=== PATIENT | male | born 1955 | race Caucasian/White ===

== ENCOUNTER 2020-08-02 06:37 | Outpatient (REF) | payer BC, SELFPAY ==
[2020-08-02 07:20] LABS: Estimated Average Glucose 128 mg/dL; Hemoglobin A1c % 6.1 %
[2020-08-02 08:27] LABS: Creatinine Urine 129.08 mg/dL; Microalbum/Creatinine Ratio Ur 12.3 ug/mg cr
== END 2020-08-02 06:38 | disposition home or self-care (01) ==
LOC: HO.LAB 06:37
PROVIDERS: PCP Physician Assistant; Visit Provider Nurse Practitioner Gerontology
DX: E11.42 Type 2 diabetes mellitus with diabetic polyneuropathy (principal)
CPT/HCPCS: 82043; 83036

== ENCOUNTER → 2020-08-04 07:53 | Outpatient (BNVA) | payer BC, SELFPAY | PROVIDERS: PCP Physician Assistant; Referring Provider Physician Assistant; Visit Provider Nurse Practitioner Gerontology | DX: E11.42 Type 2 diabetes mellitus with diabetic polyneuropathy (principal); Z79.4 Long term (current) use of insulin; I10 Essential (primary) hypertension; E78.5 Hyperlipidemia, unspecified; E66.09 Other obesity due to excess calories; Z68.31 Body mass index [BMI] 31.0-31.9, adult | CPT/HCPCS: 82947 ==

== ENCOUNTER 2020-08-04 08:43 | Outpatient (REF) | payer BC, SELFPAY ==
[2020-08-04 11:17] LABS: Alanine Aminotransferase 24 U/L (0-40); Albumin Level 4.3 g/dL (3.5-5.0); Alkaline Phosphatase 51 U/L (39-117); Anion Gap 13 (12-20); Aspartate Amino Transferase 23 U/L (5-37); Bilirubin Total 0.2 mg/dL (0.0-1.0); Blood Urea Nitrogen 24 mg/dL (9-16); Calcium 9.2 mg/dL (8.4-10.2); Carbon Dioxide 29 mmol/L (22-29); Chloride 101 mmol/L (96-108); Estimated Glomerular Filt Rate 57; Glucose Fasting 108 mg/dL (60-99); Sodium 138 mmol/L (135-145); Total Protein 7.1 g/dL (6.5-8.0)
== END 2020-08-04 08:44 | disposition home or self-care (01) ==
LOC: HO.10HDL 08:43
PROVIDERS: Visit Provider Nurse Practitioner Gerontology
DX: E11.42 Type 2 diabetes mellitus with diabetic polyneuropathy (principal)
CPT/HCPCS: 80053; 84134

== ENCOUNTER 2020-08-16 07:35 | Outpatient (REF) | payer BC, SELFPAY | END 2020-08-16 07:36 | disposition home or self-care (01) | LOC: HO.LAB 07:35 | PROVIDERS: Visit Provider Internal Medicine | DX: Z20.828 Contact with and (suspected) exposure to other viral communicable diseases (principal) | CPT/HCPCS: C9803; U0003 ==

== ENCOUNTER → 2021-02-01 07:24 | Outpatient (BNVA) | payer BC, SELFPAY | PROVIDERS: PCP Physician Assistant; Visit Provider Nurse Practitioner Gerontology | DX: E11.42 Type 2 diabetes mellitus with diabetic polyneuropathy (principal); E78.5 Hyperlipidemia, unspecified; I10 Essential (primary) hypertension; E66.09 Other obesity due to excess calories; Z68.31 Body mass index [BMI] 31.0-31.9, adult | CPT/HCPCS: 82947 ==

== ENCOUNTER → 2021-08-09 07:26 | Outpatient (BNVA) | payer BC, SELFPAY | PROVIDERS: PCP Internal Medicine; Visit Provider Nurse Practitioner Gerontology | DX: E11.42 Type 2 diabetes mellitus with diabetic polyneuropathy (principal); E78.5 Hyperlipidemia, unspecified; E66.09 Other obesity due to excess calories; I10 Essential (primary) hypertension; Z68.31 Body mass index [BMI] 31.0-31.9, adult | CPT/HCPCS: 82947 ==

== ENCOUNTER → 2021-11-15 07:48 | Outpatient (BNVA) | payer BC, SELFPAY | PROVIDERS: PCP Internal Medicine; Visit Provider Registered Nurse Diabetes Educator ==

== ENCOUNTER 2021-11-18 10:08 | Outpatient (REF) | payer BC, SELFPAY ==
--- NOTE | ~2021-11-18 | XR_ITS ---
EXAMINATION: XR SHOULDER, LEFT CLINICAL INFORMATION: Limited range of motion. Pain. COMPARISON: None TECHNIQUE: AP external rotation, Grashey, scapular Y, and axillary views of the left shoulder. FINDINGS: There is loss of left AC joint and glenohumeral joint space with left AC joint periarticular spurring. No visible fracture, dislocation or subluxation seen. There are no loose bodies. No abnormal joint effusion. The soft tissues are unremarkable. XR/XR shoulder LT min 2V IMPRESSION: Unremarkable left shoulder exam.
== END 2021-11-18 10:09 | disposition home or self-care (01) ==
LOC: HO.HMGCX 10:08
PROVIDERS: Visit Provider Internal Medicine
DX: M25.512 Pain in left shoulder (principal)
CPT/HCPCS: 73030

== ENCOUNTER 2021-11-22 07:49 | Outpatient (REF) | payer BC, SELFPAY | END 2021-11-22 07:50 | disposition home or self-care (01) | LOC: HO.HOSX 07:49 | PROVIDERS: Visit Provider Physician Assistant | DX: M75.102 Unspecified rotator cuff tear or rupture of left shoulder, not specified as traumatic (principal) | CPT/HCPCS: 20610; 99212; J1020 ==

== ENCOUNTER 2021-11-28 06:33 | Outpatient (REF) | payer BC, SELFPAY ==
[2021-11-28 07:52] LABS: Alanine Aminotransferase 17 U/L (0-40); Albumin Level 4.4 g/dL (3.5-5.0); Alkaline Phosphatase 55 U/L (39-117); Anion Gap 14 (12-20); Aspartate Amino Transferase 18 U/L (5-37); Bilirubin Total 0.4 mg/dL (0.0-1.0); Blood Urea Nitrogen 32 mg/dL (9-16); Calcium 9.9 mg/dL (8.4-10.2); Carbon Dioxide 28 mmol/L (22-29); Chloride 102 mmol/L (96-108); Cholesterol 143 mg/dL; Estimated Glomerular Filt Rate > 60; Glucose Fasting 102 mg/dL (60-99); HDL Cholesterol 34 mg/dL; LDL Cholesterol Calculated 88 mg/dl; Potassium 4.7 mmol/L (3.3-5.1); Sodium 139 mmol/L (135-145); Total Protein 7.3 g/dL (6.5-8.0); Triglycerides 106 mg/dL
[2021-11-28 10:13] LABS: Creatinine Urine 108.32 mg/dL; Microalbum/Creatinine Ratio Ur 13.8 ug/mg cr
== END 2021-11-28 06:34 | disposition home or self-care (01) ==
LOC: HO.LAB 06:33
PROVIDERS: PCP Internal Medicine; Visit Provider Nurse Practitioner Gerontology
DX: E11.42 Type 2 diabetes mellitus with diabetic polyneuropathy (principal)
CPT/HCPCS: 36415; 80053; 80061; 82043

== ENCOUNTER → 2021-11-29 07:26 | Outpatient (BNVA) | payer BC, SELFPAY | PROVIDERS: PCP Internal Medicine; Visit Provider Nurse Practitioner Gerontology | DX: E11.42 Type 2 diabetes mellitus with diabetic polyneuropathy (principal); E78.5 Hyperlipidemia, unspecified; E66.09 Other obesity due to excess calories; I10 Essential (primary) hypertension; Z68.31 Body mass index [BMI] 31.0-31.9, adult | CPT/HCPCS: 82947 ==

== ENCOUNTER 2022-09-12 12:57 | Outpatient (REF) | payer BC, SELFPAY ==
--- NOTE | ~2022-09-12 | XR_ITS ---
EXAMINATION: XR KNEE, LEFT CLINICAL INFORMATION: Pain and swelling COMPARISON: None TECHNIQUE: Four views of the left knee. FINDINGS: Bone alignment is normal. No fracture or dislocation. The joint spaces are normal. There is no joint effusion. There is atherosclerotic disease. XR/XR knee LT 4V IMPRESSION: Normal left knee. Atherosclerotic disease.
== END 2022-09-12 12:58 | disposition home or self-care (01) ==
LOC: HO.HMGCX 12:57
PROVIDERS: PCP Internal Medicine; Visit Provider Internal Medicine
DX: M25.562 Pain in left knee (principal); R60.0 Localized edema
CPT/HCPCS: 73564

== ENCOUNTER 2022-11-01 05:50 | Outpatient (REF) | payer BC, SELFPAY ==
--- NOTE | ~2022-11-01 | XR_ITS ---
EXAMINATION: XR KNEE AP STANDING X-ray left knee CLINICAL INFORMATION: Pain COMPARISON: Left knee 09/12/2022 TECHNIQUE: AP bilateral standing view of the knees was obtained. Left knee one skyline view FINDINGS: Left knee: Borderline medial compartment joint space narrowing. Marginal patellar spurs. Normal bony alignment. On the provided 2 views, no acute fracture is seen. Vascular calcification. Right knee: Anatomic alignment on the frontal radiograph. Joint spaces are relatively maintained. Vascular calcification.. XR/XR knee LT 1V IMPRESSION: Left knee: Mild arthritis as above. No acute findings seen on the provided views.
--- NOTE | ~2022-11-01 | XR_ITS ---
EXAMINATION: XR KNEE AP STANDING X-ray left knee CLINICAL INFORMATION: Pain COMPARISON: Left knee 09/12/2022 TECHNIQUE: AP bilateral standing view of the knees was obtained. Left knee one skyline view FINDINGS: Left knee: Borderline medial compartment joint space narrowing. Marginal patellar spurs. Normal bony alignment. On the provided 2 views, no acute fracture is seen. Vascular calcification. Right knee: Anatomic alignment on the frontal radiograph. Joint spaces are relatively maintained. Vascular calcification.. XR/XR knee standing BI IMPRESSION: Left knee: Mild arthritis as above. No acute findings seen on the provided views.
== END 2022-11-01 05:51 | disposition home or self-care (01) ==
LOC: HO.HOSX 05:50
PROVIDERS: Visit Provider Physician Assistant
DX: M17.12 Unilateral primary osteoarthritis, left knee (principal); M25.561 Pain in right knee; E11.9 Type 2 diabetes mellitus without complications; Z79.899 Other long term (current) drug therapy; Z79.4 Long term (current) use of insulin; Z79.84 Long term (current) use of oral hypoglycemic drugs
CPT/HCPCS: 20610; 73560; 73565; J1020

== ENCOUNTER 2022-12-04 12:00 | Outpatient (RCR) | payer BC, SELFPAY ==
--- NOTE | 2022-11-22 13:42 | MHC.PT.EP ---
[facility] [place] [facility] [place] Office [place] Office [address] Liz Meza [address] [phone] F: [phone] F: [phone] F: [phone] F: [phone] Physical Therapy Plan of Care Date of Evaluation: Date of Surgery: N/A Diagnosis: unilateral primary osteoarthritis, left knee Assessment: Pt is a pleasant 67yo M with presents to PT with L knee pain since August. He presents to PT with current impairments in pain, decreased L knee ROM, decreased L knee knee strength, decreased hip/glute strength, decreased muscle length, and impaired gait. He is limited functionally by prolonged standing, prolonged walking, stair navigation, and biking. He is an excellent candidate for skilled PT in order to address current impairments in order to facilitate return to pain-free PLOF. He is recommended to be seen 2x/week for 4 weeks and will be reassessed at that time. Frequency and Duration: The patient will be seen 2x/week for 4 weeks Short Term Goals: Pt will be I with HEP to promote self management of symptoms Pt will improve L knee extension by 5 deg Pt will improve L quad strength to 4+/5 Patient Safety Officer Goals: Pt will ascend/descend 1 flight of stairs with proper mechanics and minimal to no discomfort Pt will tolerate walking on even and uneven surfaces > 2 miles with minimal to no discomfort Pt will demonstrate improvements in function as evidenced by statistically significant improvement in LEFI outcome measure Treatment Plan: Modalities to reduce pain, spasms and effusion. Manual therapy to restore motion and function. Therapeutic exercise to improve strength and flexibility. Neuromuscular re-education for posture and balance. Therapeutic activities to return to functional activities of daily living. Electronically signed by: Marina Padgett, PT, DPT Please sign and return to therapist. Thank you for your referral.
--- NOTE | 2023-01-17 10:22 | MHC.PT.DC ---
[facility] [place] [facility] [place] Office [place] Office [address] Liz Meza [address] [phone] F: [phone] F: [phone] F: [phone] F: [phone] Physical Therapy Discharge Report Diagnosis: unilateral primary osteoarthritis, left knee Date of Surgery: N/A Date of Evaluation: 11/22/22 Date of Discharge: 01/17/23 Treatments to Date: 2 Cancellations to Date: 4 No Shows to Date: Discharge Status: Visit Non-compliance Discharge Summary: Pt was seen for PT from 11/22/22-12/04/22. He attended initial PT evaluation and 1 PT treatment session. He had 4 cancellations since SOC. He is being D/C from skilled PT as he has not attended or called to reschedule in > 30 days. Pt current level of function unknown at this time. Electronically signed by: Marina Padgett, PT, DPT Please sign and return to therapist. Thank you for your referral.
== END 2023-01-17 10:27 | disposition home or self-care (01) ==
LOC: HO.PT 12:00
PROVIDERS: PCP Internal Medicine; Visit Provider Physician Assistant
DX: M17.12 Unilateral primary osteoarthritis, left knee (principal)
CPT/HCPCS: 97110; 97161

== ENCOUNTER → 2023-01-30 10:01 | Outpatient (BNVA) | payer OTHER, SELFPAY | PROVIDERS: PCP Internal Medicine; Visit Provider Physician Assistant ==

== ENCOUNTER → 2023-02-11 08:22 | Outpatient (BNVA) | payer OTHER, SELFPAY | PROVIDERS: PCP Internal Medicine; Visit Provider Orthopaedic Surgery ==

== ENCOUNTER 2023-03-27 12:43 | Outpatient (REF) | payer OTHER, SELFPAY ==
--- NOTE | ~2023-03-27 | MR_ITS ---
EXAMINATION: MR KNEE WITHOUT CONTRAST, LEFT CLINICAL INFORMATION: Left knee pain and swelling. Internal derangement. COMPARISON: Most recent left knee radiographs dated 11/01/2022. TECHNIQUE: MRI of the knee without contrast was performed using routine sequences on a high-field scanner. FINDINGS: MENISCI: Medial Meniscus: Complete radial tear of the posterior horn/root junction measuring up to 0.9 cm in ML dimension and located approximately 0.5 cm from the posterior root insertion. Oblique inner margin/tibial articular surface tearing extending through the posterior horn and body which is medially extruded. Mild adjacent soft tissue edema. Lateral Meniscus: Minimal inner margin fraying of the posterior horn. LIGAMENTS: Cruciate: Complete, full-thickness tear of the anterior cruciate ligament with thickening and increased signal of the torn ligament fibers. Findings have the appearance of a subacute tear. Prominent degenerative signal throughout the posterior cruciate ligament. Collateral: Mild edema adjacent to the medial collateral ligament which may be related to the meniscal tear or indicate a grade 1 sprain/partial tear. Intact fibular collateral ligament. EXTENSOR MECHANISM: Intact. ARTICULAR CARTILAGE/BONE: Patellofemoral Compartment: Medial patellar articular cartilage signal heterogeneity and surface irregularity. Medial trochlear articular cartilage thinning with areas of full-thickness loss and signal heterogeneity. Inferior central trochlea articular cartilage thinning and signal heterogeneity. Small marginal osteophytes. Medial Compartment: Osteochondral lesion at the weightbearing medial femoral condyle measuring 2.4 x 2.0 cm (AP x ML). There is full-thickness articular cartilage fissuring along the periphery of the lesion with underlying fluid signal, cystic change, and prominent adjacent marrow edema. Findings are consistent with an unstable osteochondral fragment. Lateral Compartment: Intact articular cartilage. JOINT FLUID AND BURSAE: Small to moderate joint effusion with mild synovitis. MR/MR knee LT wo con IMPRESSION: 1. Complete radial tear of the medial meniscus posterior horn/root junction measuring 0.9 cm in ML dimension and located approximately 0.5 cm from the posterior root insertion. Oblique inner margin/tibial articular surface tearing extending through the posterior horn and body which is medially extruded. 2. Minimal intermargin fraying of the lateral meniscus posterior horn. 3. Subacute, complete tear of the anterior cruciate ligament. Prominent degenerative signal throughout the posterior cruciate ligament. Mild edema adjacent to the medial collateral ligament which may be related to the meniscal tear or indicate a grade 1 sprain/partial tear. 4. Osteochondral lesion at the weightbearing medial femoral condyle measuring up to 2.4 cm with full-thickness articular cartilage fissuring along the periphery of the lesion and prominent adjacent marrow edema. Findings are consistent with an unstable osteochondral fragment. 5. Mild patellofemoral osteoarthritis. Small to moderate joint effusion with mild synovitis.
== END 2023-03-27 12:44 | disposition home or self-care (01) ==
LOC: HO.MRI 12:43
PROVIDERS: PCP Internal Medicine; Visit Provider Orthopaedic Surgery
DX: M23.92 Unspecified internal derangement of left knee (principal); M25.462 Effusion, left knee
CPT/HCPCS: 73721

== ENCOUNTER 2023-12-09 11:16 | Outpatient (REF) | payer MEDICARE, SELFPAY ==
--- NOTE | ~2023-12-09 | US_ITS ---
EXAMINATION: US VENOUS ULTRASOUND WITH DOPPLER LOWER EXTREMITY, BILATERAL CLINICAL INFORMATION: Bilateral leg swelling. COMPARISON: None available. TECHNIQUE: Ultrasound of the deep veins is performed from the hip to the calf with compression sonography and color and pulse Doppler assessment. Spectral analysis with color-flow imaging is performed. FINDINGS: RIGHT: There is normal venous compression and respiratory variation and augmented flow. The visualized common femoral vein, superficial femoral vein, profunda femoral vein, popliteal vein, and the trifurcation region shows no evidence of deep venous thrombosis. LEFT: There is normal venous compression and respiratory variation and augmented flow. The visualized common femoral vein, superficial femoral vein, profunda femoral vein, popliteal vein, and the trifurcation region shows no evidence of deep venous thrombosis. If the patient's symptoms persist, followup ultrasound in 5 days 7 days might be of value to exclude proximal propagation from a non-visualized calf vein. Bilateral calf subcutaneous edema. US/US venous duplex LE BI IMPRESSION: No DVT demonstrated in the bilateral lower extremities.
--- NOTE | ~2023-12-09 | XR_ITS ---
EXAMINATION: XR CHEST CLINICAL INFORMATION: Shortness of breath and fatigue. COMPARISON: 02/19/2020 TECHNIQUE: 2 views of the chest were obtained. FINDINGS: Lungs are well-inflated and clear. No evidence of interstitial disease, consolidation or pleural effusion. Cardiac silhouette is at the up is at the upper range of normal size. The hilar contours are normal. There is mild atherosclerotic calcification of the aortic arch. Skeletal structures and visualized upper abdomen are unremarkable. XR/XR chest 2V IMPRESSION: There is no evidence of any active cardiopulmonary disease.
[2023-12-09 16:56] LABS: MANUAL DIFF FLAG NO
[2023-12-09 18:16] LABS: Alanine Aminotransferase 34 U/L (0-40); Albumin Level 4.2 g/dL (3.5-5.0); Alkaline Phosphatase 40 U/L (39-117); Anion Gap 13 (12-20); Aspartate Amino Transferase 25 U/L (5-37); Bilirubin Total 0.7 mg/dL (0.0-1.0); Blood Urea Nitrogen 20 mg/dL (9-16); Calcium 9.9 mg/dL (8.4-10.2); Carbon Dioxide 26 mmol/L (22-29); Chloride 107 mmol/L (96-108); Estimated Glomerular Filt Rate > 60; Glucose Random 105 mg/dL (60-115); Potassium 4.6 mmol/L (3.3-5.1); Sodium 141 mmol/L (135-145); Total Protein 7.2 g/dL (6.5-8.0)
[2023-12-09 18:20] LABS: B Type Natriuretic Peptide 555 pg/mL (<100)
[2023-12-09 18:27] LABS: Basophils Percent Auto 0.5 % (0-2); Eosinophils Absolute Auto 0.2 X10*3/uL (0.0-0.4); Eosinophils Percent Auto 2.5 % (0-4); Hemoglobin 12.1 g/dl (14.0-18.0); Imm Gran Abs Auto 0.02 X10*3/uL (0.00-0.03); Imm Gran Pct Auto 0.3 % (0.0-0.4); Lymphocytes Absolute Auto 1.7 X10*3/uL (1.2-4.9); Lymphocytes Percent Auto 21.9 % (20-40); Mean Corpuscular HGB Conc 31.8 g/dl (31.0-36.0); Mean Corpuscular Hemoglobin 30.9 pg (27.0-33.0); Mean Corpuscular Volume 96.9 fL (80.0-98.0); Monocytes Absolute Auto 0.6 X10*3/uL (0.1-1.2); Monocytes Percent Auto 7.3 % (2-11); Neutrophils Absolute Auto 5.1 x10*3/uL (2.0-8.3); Neutrophils Percent Auto 67.5 % (45-73); Platelet Count 212 X10*3/uL (160-400); Red Blood Count 3.92 X10*6/uL (4.60-5.80); Red Cell Distribution Width 15.2 % (11.0-16.0); White Blood Count 7.6 X10*3/uL (4.8-10.8)
== END 2023-12-09 11:17 | disposition home or self-care (01) ==
LOC: HO.US 11:16
PROVIDERS: PCP Internal Medicine; Visit Provider Internal Medicine
DX: R06.02 Shortness of breath (principal); R53.83 Other fatigue; R60.0 Localized edema; M79.662 Pain in left lower leg; M79.661 Pain in right lower leg
CPT/HCPCS: 36415; 71046; 80053; 83880; 85025; 93970

== ENCOUNTER 2023-12-18 12:12 | Outpatient (REF) | payer MEDICARE, SELFPAY ==
[2023-12-18 14:29] LABS: B Type Natriuretic Peptide 100 pg/mL (<100)
[2023-12-18 14:41] LABS: Anion Gap 15 (12-20); Blood Urea Nitrogen 37 mg/dL (9-16); Calcium 10.3 mg/dL (8.4-10.2); Carbon Dioxide 27 mmol/L (22-29); Chloride 99 mmol/L (96-108); Estimated Glomerular Filt Rate 60; Glucose Random 99 mg/dL (60-115); Potassium 4.7 mmol/L (3.3-5.1); Sodium 136 mmol/L (135-145)
== END 2023-12-18 12:13 | disposition home or self-care (01) ==
LOC: HO.LAB 12:12
PROVIDERS: PCP Internal Medicine; Visit Provider Internal Medicine Cardiovascular Disease
DX: I50.9 Heart failure, unspecified (principal)
CPT/HCPCS: 36415; 80048; 83880; 93005; 99202

== ENCOUNTER 2023-12-18 12:12 | Outpatient (AMB) | payer MEDICARE, SELFPAY ==
--- NOTE | 2023-12-18 12:28 | MHC.OFFVIS ---
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 Esol Instructor Required: No Histologist: Histologist Present Accompanied by: Spouse Allergies No Known Allergies Allergy (Verified 01/30/23 10:10) Medication List - Last Reconciled 12/18/23 by Jose Lopez MD atorvastatin 20 mg PO DAILY blood sugar diagnostic (PrometheanTouch Verio test strips) 4 times a day cholecalciferol (vitamin D3) 50 mcg PO DAILY furosemide 20 mg PO DAILY glucosamine HCl PO insulin glargine U-300 conc (Toujeo Max U-300 SoloStar) 32 units (0.1067 mL) subcut DAILY 90 days insulin lispro (Humalog KwikPen (U-100) Insulin) 8 - 12 units (0.08 - 0.12 mL) subcut TID lancets As directed lisinopril 20 mg PO DAILY metformin 1,000 mg PO BID pen needle, diabetic (BD Ultra-Fine Manasa Pen Needle) 1 ea subcut QID pioglitazone 30 mg PO DAILY HPI HPI Comments History of Present Illness Details Thank you for referring Javi in cardiology consultation today for new onset symptoms suggestive of congestive heart failure. He has a pleasant 68-year-old male with longstanding history of hypertension, diabetes, hyperlipidemia. Patient in July was switch from [facility] due to the cost issues. About couple of weeks to 3 weeks ago he started noticing that he is gaining weight. He went from his baseline to 10 lb to 222 lb and started noticing associated swelling in his feet. He did not notice much abdominal distension although he did not pay much attention to it. However with that he started noticing increasing shortness of breath and eventually led to significant shortness of breath with minimal exertion. There has led to blood work which showed BNP of 555. He was subsequently started on Lasix 20 mg daily, which she said did not lead to significant improvement and for last 5 days he has been taking 20 mg b.i.d.. Since then he said he is back to normal. His leg edema is gone he is back to 210 lb in his breathing is back to baseline. He is back to his activity level. Although he has not been exercising much. About a week prior to this whole event he had participate in lot of significant exertion. He has never had any heart problems prior to that. Denies any coronary artery disease or myocardial infarction in the past. He does not have any exertional chest pain. He denies any prolonged palpitation irregular heartbeat. No lightheadedness, syncope. He said prior to this he was eating a lot of salt but now started watching his salt intake and has reduced it. However does not think that a lot of salt intake was response with for syndrome. [facility] Medical History Obesity due to excess calories Pancreatitis Vitamin D deficiency Type 2 diabetes mellitus with diabetic polyneuropathy Essential hypertension Hyperlipidemia LDL goal <100 Surgical History Hx of bilateral cataract extraction Hx of eye surgery History of neck surgery Family History Father Diabetes Mother No problems noted. 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 Const Denies chills, Denies daytime sleepiness, Denies fatigue, Denies fever(s), Denies frequent falls, Denies poor appetite, Denies snoring, Denies stops breathing during sleep, Denies weakness, Denies weight gain and Denies weight loss Eyes Denies loss of vision ENT Denies dizziness and Denies hearing loss Card Denies chest pain, Denies claudication, Denies leg edema, Denies lightheadedness, Denies palpitations, Denies dyspnea, Denies dyspnea on exertion and Denies orthopnea Resp Denies cough, Denies excessive phlegm production, Denies dyspnea, Denies dyspnea on exertion, Denies snoring and Denies wheezing GI Denies abdominal pain, Denies hematochezia, Denies change in bowel habits, Denies nausea and Denies vomiting Denies dysuria and Denies urinary frequency Musc Denies arthralgias, Denies muscle weakness, Denies numbness and Denies other (frequent falls) Skin/Breast Denies nail changes and Denies rash Neuro Denies Abnormal speech present, Denies dizziness, Denies frequent falls, Denies loss of vision, Denies memory loss, Denies numbness and Denies weakness Psych Denies depression and Denies memory loss Endo Denies fatigue and Denies palpitations Jovan/Lymph Reports easy bruising and Reports other (anemia) Aller/Immun Denies wheezing Physical Exam Vital Signs: Last Vital Signs Pulse 78 12/18/23 12:30 BP 130/80 12/18/23 12:30 BMI result Body Mass Index 30.2 Const General: cooperative, comfortable, no acute distress, alert, awake, Physically active and well groomed Nutritional Appearance: well nourished and overweight Orientation/consciousness: patient oriented x3 Limitations: no limitations HEENT Head: Yes normocephalic and Yes atraumatic Neck Neck: Yes trachea midline, Yes supple and Yes no JVD Resp Effort & Inspection: normal respiratory effort Auscultation: clear to auscultation bilaterally Cardio Jugular venous distension: no JVD Palpation: normal PMI Rate: regular rate Rhythm: regular rhythm Heart sounds: S1 normal heart sound present, S2 normal heart sound present, no click, no gallops, no murmurs and no rubs Peripheral pulses: Peripheral pulses 2+ throughout GI Auscultation: normal bowel sounds Skin General skin exam: no rashes or lesions noted Neuro General: patient oriented x3 and no focal motor deficits Speech: No Abnormal speech present Extrem General: Yes no clubbing, cyanosis or edema Psych Appearance: grossly normal Office Procedures EKG Details: EKG shows normal sinus rhythm with sinus arrhythmia with rightward axis with T-wave inversion inferior leads and nonspecific ST changes in the lateral leads which could represent repolarization abnormality 90907-[id number], Complete Assessment & Plan Assessment & Plan (1) Congestive heart failure: Code(s): I50.9 - Heart failure, unspecified Plan: New onset congestive heart failure in this elderly gentleman with longstanding diabetes, hypertension hyperlipidemia. Clinically doing extremely well with diuretic regimen. He self increased his Lasix to 40 mg a day and is currently euvolemic and well compensated. I have advised him to switch back to 20 mg a day. We discussed about heart failure management in details. Daily weight monitoring avoidance of salt loading was discussed additional diuretics as need be. He understands management well. Aggressive control blood pressure. Cause of his heart failure is currently not known any requires further workup including most importantly echocardiogram which is scheduled in near future. Will try to pre poor unit to assess for LV systolic and diastolic function to evaluate for valvular abnormality and pulmonary hypertension. Possibilities include ischemic heart disease and/or cardiomyopathy process. Will also suggest a exercise myocardial perfusion imaging to assess for myocardial ischemia as this could be a underlying cause for him developing heart failure syndrome. Will obtain repeat labs today as patient is euvolemic and establish baseline dry BNP. Also obtain baseline basic metabolic profile in dry state. This was discussed with him. Meanwhile I have advised him to stop pioglitazone which is known to cause fluid gain and worsening heart failure syndrome. I have advised him to switch to dapagliflozin which has shown to benefit in patients with heart failure syndrome. Will follow up in the clinic in 4 weeks time, sooner p.r.n.. Thank you for allowing me to partake in his care Orders: Orders NM cardiolite stress test 2 Weeks R07.9 - Chest pain, unspecified B Type Natriuretic Peptide Today I50.9 - Heart failure, unspecified CA stress test Today Basic Metabolic Panel Today I50.9 - Heart failure, unspecified Medications: New dapagliflozin propanediol (Farxiga) 10 mg PO DAILY 30 tabs 5RF Discontinued pioglitazone Discontinued Reason: Doctor's Order 30 mg PO DAILY 30 tabs 11RF Coding Level of Care Code New Pt Level 4 (57499) Diagnoses Congestive heart failure I50.9 CPT Codes EKG - CPT: 17610-[id number], Complete ([id number])
[2023-12-18 12:30] VITALS: BP 130/80; PULSE 78; BMI 30.2
== END 2023-12-18 13:03 | disposition home or self-care (01) ==
PROVIDERS: PCP Internal Medicine; Visit Provider Internal Medicine Cardiovascular Disease
DX: I50.9 Heart failure, unspecified (principal)
CPT/HCPCS: 93010; 99204; 99214

== ENCOUNTER → 2023-12-23 15:36 | Outpatient (REF) | payer MEDICARE, SELFPAY ==
--- NOTE | 2023-12-23 15:41 | CA_ITS ---
Transthoracic Echocardiogram Patient (Last, First, Middle): Javi Covarrubias P Gender: Male Date of : 1955 Age: 68 Procedure Date: 12/23/2023 Procedure Type: Transthoracic Echocardiogram Location: OP Height: 177.8 cm Weight: 92.53 kg BSA: 2.10 m2 Heart Rate: bpm BP: 130 / 82 mmHg Meat Market Manager: Referring MD: Chaz Leahy MD Symptoms: ELEV BNP SOB BILAT LEG EDEMA R/O CHF (I50.9) Study Quality: Adequate w Definity ECG Rhythm: Sinus Conclusions: - The left ventricular systolic function is severely decreased. The calculated ejection fraction is 22% by biplane method. - The anterolateral wall, inferolateral wall, the basal inferior, and mid inferior segments are akinetic. - Evidence suggests grade II (moderate) diastolic dysfunction. - No obvious valvular pathology seen on this study. Findings Procedure Information Contrast agent, definity, is being given per protocol without apparent complications. Left Ventricle Mildly increased left ventricular cavity size. The left ventricular systolic function is severely decreased. The calculated ejection fraction is 22% by biplane method. There is evidence of regional wall motion abnormalities. Evidence suggests grade II (moderate) diastolic dysfunction. Wall Motion Rest Echo Findings The anterolateral wall, inferolateral wall, the basal inferior, and mid inferior segments are akinetic. Right Ventricle Mildly increased right ventricular cavity size. There is normal right ventricular systolic function. Atria Moderate biatrial enlargement. Aortic Valve There is mild calcification of the aortic valve. There is no aortic valve stenosis. There is no aortic valve regurgitation. Mitral Valve The mitral valve appears normal. There is mild mitral valve regurgitation. There is no mitral valve stenosis. Pulmonic Valve The pulmonic valve is likely normal. Tricuspid Valve Normal tricuspid valve structure. There is mild tricuspid valve regurgitation. There is no evidence of pulmonary hypertension. Great Vessels The asc aorta is normal in size. Venous The inferior vena cava was not well visualized. The inferior vena cava is normal in size and collapses greater than 50% with inspiration. Pericardium/Pleural There is no evidence of pericardial effusion. Prior Study Comparison No prior study available for comparison. Recommendations, Care & Conclusions No obvious valvular pathology seen on this study. Measurements M-Mode Liner Measurements Normals - Women/Men LVIDd: 6.59 3.9-5.3/4.2-5.9 cm LVIDd Index: 3.14 1.9-3.2 cm/m2 M-Mode Volumes LV EDV: 223.00 2D Linear Measurements IVSd: 0.99 0.6-0.9/0.6-1.0 cm LVIDd: 5.93 3.9-5.3/4.2-5.9 cm LVIDd Index: 2.82 2.4-3.2/2.2-3.1 cm/m2 LVIDs: 5.23 2.0-3.6 cm LVPWd: 0.87 0.7-1.1 cm Ao Root: 2.80 2.1-3.5 cm LA Diam: 4.90 2.7-3.8/3.0-4.0 cm LAIDs Index: 2.33 1.5-2.3 cm/m2 LV Mass: 273.45 67-162/88-224 g LV Mass Index: 130.21 43-95/49-115 g/m2 LVOT Diam: 2.00 3.0+(-)1.3 cm 2D Systolic Function EF 4C: 25.40 >55% EF 2C: 17.90 >55% EF BiP: 22.40 >55% Mitral Valve MV Pk E: 0.86 MV PK A: 0.48 MV Decel Time: 171.00 E/A: 1.80 E'Lateral: 6.96 E'Medial: 4.90 E/E' Med: 17.60 E/E' Lat: 12.40 PHT: 50.00 MVA PHT: 4.40 Decel Spink: 5.04 Aortic Valve AoV Pk Get: 1.55 AoV Mn Get: 1.00 AoV VTI: 0.32 AoV Pk Grad: 10.00 Aov Mn Grad: 5.00 ANNALISE Cont.VTI: 1.60 LVOT LVOT Pk Get: 0.82 LVOT Mn Get: 0.50 LVOT VTI: 0.16 LVOT Pk Grad: 3.00 LVOT Mn Grad: 1.00 LVOT Diam: 2.00 LVOT Area: 3.14 Diastolic Function MV Pk E: 0.86 MV Pk A: 0.48 E/A: 1.80 E'Medial: 4.90 E/E' Med: 17.60 E' Laterial: 6.96 E/E' Lat: 12.40 Right Ventricle TAPSE (mm): 23.00 TVS' Get: 8.00 Tricuspid Valve TR Pk Get: 2.46 TR Pk Grad: 24.00 RA Press: 3.00 RVSP: 27.00 Great Vessels Aorta Ao Root-2D: 2.80 2.0-3.7 cm Ao Asc: 3.20 2.1-3.4 cm Pulmonary Valve PV Pk Get: 0.76 Peak PV Grad: 2.00 Updated in Other Vendor System with Status of Final Laron Cardona MD electronically signed on 12/24/2023 8:41:57 AM with status of Final
== END ==
LOC: HO.CARD 15:36
PROVIDERS: PCP Internal Medicine; Visit Provider Internal Medicine
DX: R06.02 Shortness of breath (principal); R60.0 Localized edema
CPT/HCPCS: 93306; Q9957

== ENCOUNTER → 2023-12-23 15:41 | Outpatient (BNV) | payer MEDICARE, SELFPAY | PROVIDERS: PCP Internal Medicine; Visit Provider Internal Medicine | DX: I36.1 Nonrheumatic tricuspid (valve) insufficiency (principal); I35.8 Other nonrheumatic aortic valve disorders | CPT/HCPCS: 93306 ==

== ENCOUNTER 2023-12-25 10:16 | Outpatient (AMB) | payer MEDICARE, SELFPAY ==
--- NOTE | 2023-12-25 10:24 | A.OFFVIS_ITS ---
Intake Vital Signs 12/25/23 10:26 Height 5 ft 10 in Weight 216 lb 11.43 oz BMI 31.1 BP 124/68 Blood Pressure Location Lt brachial Position Sitting Pulse 72 Intake Visit Reasons: f/u echo (no stress test) Intake Note: follow up after echo Allergies No Known Allergies Allergy (Verified 01/30/23 10:10) HPI HPI Comments History of Present Illness Details 68-year-old male presents today for a fo llow-up regarding his echocardiogram. He denies any chest pains, shortness of breath. orthopnea, or swelling of his legs. He does endorse he gets some shoulder discomfort. [facility] Medical History Abnormal echocardiogram Pre-procedural cardiovascular examination Obesity due to excess calories Pancreatitis Vitamin D deficiency Type 2 diabetes mellitus with diabetic polyneuropathy Essential hypertension Hyperlipidemia LDL goal <100 Surgical History Hx of bilateral cataract extraction Hx of eye surgery History of neck surgery Family History Father Diabetes Mother No problems noted. 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 [employer] Reviewed Review of Systems Const Denies weakness ENT Denies dizziness Card Denies chest pain, Denies chest pain with activity, Denies syncope, Denies rapid heart rate, Denies pedal edema, Denies edema, Denies leg edema, Denies lightheadedness, Denies palpitations, Denies dyspnea, Denies dyspnea on exertion and Denies orthopnea Resp Denies cough, Denies dyspnea and Denies dyspnea on exertion GI Denies hematochezia and Denies change in stool character Musc Denies abnormal gait, Denies muscle cramps, Denies muscle weakness, Denies numbness, Denies radiating pain into limb and Denies tingling Neuro Denies abnormal gait, Denies dizziness, Denies syncope, Denies numbness, Denies tingling and Denies weakness Endo Denies palpitations Physical Exam Vital Signs: Last Vital Signs Pulse 72 12/25/23 10:26 BP 124/68 12/25/23 10:26 BMI result Body Mass Index 31.1 Const General: healthy appearing and no acute distress Orientation/consciousness: patient oriented x3 HEENT Head: Yes normal to inspection Eyes General: appearance normal, both eyes and all related structures Neck Neck: Yes normal visual inspection Chest Chest palpation & inspection: normal inspection of the chest Resp Effort & Inspection: normal respiratory effort Auscultation: clear to auscultation bilaterally Cardio Jugular venous distension: no JVD Palpation: normal PMI Rate: regular rate Rhythm: regular rhythm Heart sounds: S1 normal heart sound present, S2 normal heart sound present, no click, no gallops, no murmurs and no rubs GI Inspection: Yes normal to inspection Palpation (GI): Soft to palpation Skin General skin exam: no rashes or lesions noted Neuro General: patient oriented x3 Extrem General: Yes normal to inspection Psych Appearance: grossly normal Results Reviewed Results Reviewed: Echocardiogram Conclusions: - The left ventricular systolic function is severely decreased. The calculated ejection fraction is 22% by biplane method. - The anterolateral wall, inferolateral wall, the basal inferior, and mid inferior segments are akinetic. - Evidence suggests grade II (moderate) diastolic dysfunction. - No obvious valvular pathology seen on this study. Assessment & Plan Assessment & Plan (1) Abnormal echocardiogram: Code(s): R93.1 - Abnormal findings on diagnostic imaging of heart and coronary circulation Plan Echocardiogram showed EF of 22% by biplane method. Anterolateral, inferolateral, basal inferior, and mid inferior segments are akinetic. Patient will undergo cardiac catheterization. Instructions and procedure reviewed in detail. Patient reports understanding. Patient is going for lab work today. Will start him on ASA 81mg and carvedilol 3.125mg BID. He is on Atorvastatin - continue. ED care for symptoms in meantime. All questions at this time are answered. Will follow- up after cardiac catheterization or sooner if needed. Patient agrees to plan. Orders: Orders Complete Blood Count Auto Diff Today I10 - Essential (primary) hypertension, I50.9 - Heart failure, unspecified, Z01.810 - Encounter for preprocedural cardiovascular examination, Z01.812 - Encounter for preprocedural laboratory examination Prothrombin Time INR Today I10 - Essential (primary) hypertension, I50.9 - Heart failure, unspecified, Z01.810 - Encounter for preprocedural cardiovascular examination, Z01.812 - Encounter for preprocedural laboratory examination Basic Metabolic Panel Today I10 - Essential (primary) hypertension, I50.9 - Heart failure, unspecified, Z01.810 - Encounter for preprocedural cardiovascular examination Medications: New aspirin 81 mg PO DAILY 90 days 90 tabs 3RF carvedilol (Coreg) must administer with a meal/food 3.125 mg PO BID 60 tabs 3RF Coding Level of Care Code Est Pt Level 3 (79990) Diagnoses Abnormal echocardiogram R93.1
[2023-12-25 10:26] VITALS: BP 124/68; PULSE 72; BMI 31.1
== END 2023-12-25 10:47 | disposition home or self-care (01) ==
PROVIDERS: PCP Internal Medicine; Visit Provider Nurse Practitioner
DX: R93.1 Abnormal findings on diagnostic imaging of heart and coronary circulation (principal)
CPT/HCPCS: 99213

== ENCOUNTER → 2023-12-25 10:51 | Outpatient (REF) | payer MEDICARE, SELFPAY ==
[2023-12-25 11:04] LABS: MANUAL DIFF FLAG NO
[2023-12-25 12:05] LABS: Prothrombin Time 12.1 SEC (11.1-13.3)
[2023-12-25 12:11] LABS: Basophils Percent Auto 0.7 % (0-2); Eosinophils Absolute Auto 0.2 X10*3/uL (0.0-0.4); Hematocrit 43.7 % (42.0-52.0); Hemoglobin 14.4 g/dl (14.0-18.0); Imm Gran Abs Auto 0.02 X10*3/uL (0.00-0.03); Imm Gran Pct Auto 0.3 % (0.0-0.4); Lymphocytes Absolute Auto 1.8 X10*3/uL (1.2-4.9); Lymphocytes Percent Auto 30.2 % (20-40); Mean Corpuscular Hemoglobin 30.8 pg (27.0-33.0); Mean Corpuscular Volume 93.4 fL (80.0-98.0); Mean Platelet Volume 10.2 fL (9.4-12.4); Monocytes Absolute Auto 0.5 X10*3/uL (0.1-1.2); Neutrophils Absolute Auto 3.4 x10*3/uL (2.0-8.3); Neutrophils Percent Auto 56.8 % (45-73); Platelet Count 250 X10*3/uL (160-400); Red Blood Count 4.68 X10*6/uL (4.60-5.80); Red Cell Distribution Width 13.9 % (11.0-16.0)
[2023-12-25 13:04] LABS: Anion Gap 13 (12-20); Blood Urea Nitrogen 32 mg/dL (9-16); Calcium 9.6 mg/dL (8.4-10.2); Carbon Dioxide 29 mmol/L (22-29); Chloride 99 mmol/L (96-108); Estimated Glomerular Filt Rate 57; Glucose Random 114 mg/dL (60-115); Potassium 4.6 mmol/L (3.3-5.1); Sodium 136 mmol/L (135-145)
== END ==
LOC: HO.CARD 10:51
PROVIDERS: Internal Medicine Cardiovascular Disease; Absent Provider Nurse Practitioner; PCP Internal Medicine; Visit Provider Internal Medicine
DX: Z01.810 Encounter for preprocedural cardiovascular examination (principal); Z01.812 Encounter for preprocedural laboratory examination; R07.9 Chest pain, unspecified; I11.0 Hypertensive heart disease with heart failure; R93.1 Abnormal findings on diagnostic imaging of heart and coronary circulation
CPT/HCPCS: 36415; 80048; 85025; 85610; 99212

== ENCOUNTER 2024-05-12 14:21 | Outpatient (REF) | payer MEDICARE, SELFPAY ==
--- NOTE | ~2024-05-12 | XR_ITS ---
EXAMINATION: XR LUMBOSACRAL SPINE CLINICAL INFORMATION: Low back pain. Right hip pain. COMPARISON: None available. TECHNIQUE: Three views of the lumbosacral spine. FINDINGS: There are 5 lumbar-type kge-rvy-tgqhoks vertebrae. The vertebral body heights are maintained. A mild grade 1 anterolisthesis is noted at L5-S1 level. Otherwise vertebral alignment is maintained. Moderate to severe disc space narrowing is noted at L5-S1 with marginal osteophytic changes. Moderate facet arthropathy is noted at L5-S1 with dovu-zp-aqlajrfo facet arthropathy at L4-L5. Neural foraminal stenosis at L5-S1 and probably at L4-L5 as well is suspected. Remainder of the disc spaces are preserved. Small marginal endplate osteophytes are noted at multiple levels. No suspicious lytic or blastic osseous lesions. Limited evaluation of the sacroiliac joints and visualized hip joints as well as pubic symphysis is unremarkable. Moderate stool burden is noted in the visualized colon. Scattered aortic calcifications. XR/XR lumbar spine 2-3V IMPRESSION: Lumbar spondylosis, greatest at L5-S1. No evidence of acute compression fracture or suspicious osseous lesion. Mild grade 1 anterolisthesis at L5-S1. Electronically signed by: Luis Leach MD 05/22/2024 04:43 PM EDT
== END 2024-05-12 14:22 | disposition home or self-care (01) ==
LOC: HO.HMGCX 14:21
PROVIDERS: PCP Internal Medicine; Visit Provider Internal Medicine
DX: M54.50 Low back pain, unspecified (principal)
CPT/HCPCS: 72100

== ENCOUNTER 2024-10-19 13:35 | Outpatient (AMB) | payer MEDICARE, SELFPAY ==
[2024-10-19 13:54] VITALS: BP 118/72; PULSE 77; TEMP 36.2; O2SAT 98; BMI 29.6
--- NOTE | 2024-10-19 13:54 | A.OFFPC_ITS ---
Vital Signs 10/19/24 13:54 Height 5 ft 10 in Weight 206 lb BMI 29.6 BP 118/72 Blood Pressure Location Lt brachial Position Sitting Pulse 77 Pulse Source Pulse Oximeter Temp 97.1 F Temp Source Temporal Artery Scan Pulse Oximetry (%) 98 Oxygen Delivery Method Room Air Intake Visit Reasons: re-establish care Compass Operator Required: No Accompanied by: Self / Same As Patient Allergies No Known Allergies Allergy (Verified 10/19/24 13:57) Medication List - Last Reconciled 10/19/[address] MD aspirin 81 mg PO DAILY 90 days atorvastatin 80 mg PO BEDTIME blood sugar diagnostic (Twelixiruch Verio test strips) 4 times a day cholecalciferol (vitamin D3) 50 mcg PO DAILY dapagliflozin propanediol (Farxiga) 10 mg PO DAILY insulin glargine U-300 conc (Toujeo Max U-300 SoloStar) 32 units (0.1067 mL) subcut DAILY 90 days insulin lispro (Humalog KwikPen (U-100) Insulin) 8 - 12 units (0.08 - 0.12 mL) subcut TID lancets As directed levothyroxine 125 mcg PO DAILY patiromer calcium sorbitex (Veltassa) 16.8 grams PO DAILY pen needle, diabetic (BD Ultra-Fine Manasa Pen Needle) 1 ea subcut QID sacubitril-valsartan 49-51 mg (Entresto) 1 tab PO BID Tobacco use date assessed: 10/19/24 Fall risk assessment: 1 Fall in past year (At [facility] about 1 month ago.) Last assessed Fall Risk: 10/19/24 Dental Screening Dental Screen Date: 10/19/24 Did you have a dental visit in the last 12 months?: Yes Did you have a dental problem in the last 6 months where you did not have access to dental care?: No Was dental information given to patient?: Patient has dentist HPI re-establish care HPI Details Cardiology Dr. Paiz, The patient is a 69-year-old male presenting with symptoms associated with his cardiac and musculoskeletal conditions. Historically, the patient has experienced episodes of atrial fibrillation that manifested post-operatively after his triple bypass surgery in December 2022. This cardiac event followed episodes of heart attack, preceded by cardiac symptoms such as cardiac arrhythmia and myocardial dysfunction, necessitating the bypass surgery conducted by Dr. Villafana. The patient's heart failure is characterized by reduced cardiac output with an ejection fraction between 20-30%, and there are signs of fluid retention evident as peripheral edema. Post-surgery, the patient experienced episodes of shortness of breath and has a history of elevated BNP, although the current status is pending. Furthermore, the musculoskeletal history includes a total knee replacement performed in April 2023 due to previous degenerative changes and structural damage. The patient reports developing lumbar spine issues, with symptoms identified as radiculopathy, prompting intervention by Dr. Garza in July 2023. Additional chronic health issues include type 2 diabetes managed with insulin therapy, specifically TruJeo and Humalog, as well as hypertension and dyslipidemia. Hypothyroidism was identified during hospitalization and managed with Levothyroxine. The patient's peripheral neuropathy, diagnosed on electrodiagnostic testing, presents with limited digital mobility but is otherwise asymptomatic in terms of sensation or pain. No new neurological events have been reported. - COVID-19 and annual influenza vaccinat ions up-to-date. - Pneumonia vaccination completed. - Tetanus immunization status reviewed a nd confirmed. - Recommendations for a low-potassium di et due to chronic kidney disease. - Encouragement of a plant-based diet wi th minimal animal protein intake. - Regular exercise regimens, including w alking activities. - Monitoring of weight and dietary potas sium levels. - Screening of prostate levels and other routine blood tests. - Regular physical activity, including w alking approximately 2.3 miles routinely. - Adheres to a low-potassium diet due to kidney function management. - Reports consuming 7-8 bottles of water daily for proper hydration. - Lives with his , who is a nurse, hortensia mercado she assists him in managing health. - Cardiovascular: Denies chest pain. - Respiratory: Denies respiratory distre ss or shortness of breath currently. - Gastrointestinal: Reports intermittent constipation. - Urological: Reports frequent nightly u rination. - Musculoskeletal: Reports ongoing issue s with finger and back mobility, post- surgeries. - Neurological: Denies seizures or new n eurological symptoms. - Labs: Pending results on BNP for heart failure assessment and A1c for diabetes monitoring. - Diagnostic Imaging: Documentation of p ast echocardiograms indicated reduced cardiac function. [facility] Medical History (Updated 10/19/24 @ 14:[address] MD) Abnormal echocardiogram Pre-procedural cardiovascular examination Obesity due to excess calories Pancreatitis Vitamin D deficiency Type 2 diabetes mellitus with diabetic polyneuropathy Essential hypertension Hyperlipidemia LDL goal <100 Surgical History (Updated 10/19/24 @ 14:[address] MD) Hx of bilateral cataract extraction Hx of eye surgery History of neck surgery Family History Father Diabetes Mother No problems noted. 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 1. Little interest or pleasure in doing things: not at all 2. Feeling down, depressed, or hopeless: not at all 3. Trouble falling or staying asleep, or sleeping too much: not at all 4. Feeling tired or having little energy: not at all 5. Poor appetite or overeating: not at all 6. Feeling bad about yourself - or that you are a failure or have let yourself or your family down: not at all 7. Trouble concentrating on things, such as reading the newspaper or watching television: not at all 8. Moving or speaking so slowly that other people could have noticed. Or the opposite - being so fidgety or restless that you have been moving around a lot more than usual: not at all 9. Thoughts that you would be better off or of hurting yourself in some way: not at all Total score: 0 Depression Screening Interpretation: Negative Depression Screening Done: Yes 61518 - PHQ-9 Billing: Yes Source: Developed by Drs. Lalit Marin, Danna Wang, Vasiliy Helms and colleagues, with an educational jules from [employer]. Thrive Questionnaire Date Thrive assessed: 10/19/24 I am a: Patient What is your living situation today?: I have a steady place to live Within the past 12 months, did the food you bought not last and you didn't have the money to get more?: Never true Within the past 12 months, did you worry whether your food would run out before you got money to buy more?: Never true Do you have trouble paying for medicines?: No Do you have trouble getting transportation to medical appointments?: No Do you have trouble paying your heating and electricity bill?: No Do you have trouble taking care of your child, family member or friend?: No Do you have trouble with day-to-day activities such as bathing, preparing meals, shopping, managing finances, etc.?: No Are you currently unemployed and looking for a job?: No Are you interested in more education?: No Please select the resources that you would like help with: None Currently or been in a relationship where the following occur: No concerns reported THRIVE Score: 0 AUDIT C Alcohol Use Questionnaire (AUDIT-C) 1. How often do you have a drink containing alcohol?: Monthly or less 2. How many drinks containing alcohol do you have on a typical day when you are drinking?: 1 or 2 3. How often do you have six or more drinks on one occasion?: Never Total Score: 1 JAMI-7 AMB Questionnaire JAMI-7 Date JAMI - 7 assessed: 10/19/24 Feeling nervous, anxious, or on edge: 0 = Not at all Not being able to stop or control worryin = Not at all Worrying too much about different things: 0 = Not at all Trouble relaxin = Not at all Being so restless that it is hard to sit still: 0 = Not at all Becoming easily annoyed or irritable: 0 = Not at all Feeling afraid as if something awful might happen: 0 = Not at all Total JAMI-7 score (0-4 normal; 5-9 mild; 10-14 moderate; 15-21 severe): 0 Source: Developed by Drs. Lalit Marin, Danna Wang, Vasiliy Helms and colleagues, with an educational jules from [employer]. JAMI-7 Assessment Billing JAMI-7 Assessment Tool: JAMI-7 Assessment 21841 Physical exam (Primary Care) Vital Signs: Last Vital Signs Temp 97.1 F 10/19/24 13:54 Pulse 77 10/19/24 13:54 BP 118/72 10/19/24 13:54 Pulse Ox 98 10/19/24 13:54 Oxygen Delivery Method Room Air 10/19/24 13:54 BMI result Body Mass Index 29.6 Tobacco/Smoking Status: Tobacco use Status Tobacco use date assessed 10/19/24 10/19/24 14:04 Patient Tobacco Use Status Never used Tobacco 10/19/24 14:04 e-Cigarette/Vaping Use Never Used 10/19/24 14:04 PHQ-9: PHQ-9 Score PHQ-9: Total score 0 10/19/24 14:36 Depression Screening Interpretation: Negative Thrive Assessment: Date of Thrive Assessment Date Thrive assessed 10/19/24 10/19/24 14:04 Currently or been in a relationship where the following occur: No concerns reported Const General: alert; No acute distress Eyes Conjunctivae: conjunctivae normal Resp Auscultation: clear to auscultation bilaterally Cardio Rate: regular rate Rhythm: regular rhythm GI Inspection: Yes normal to inspection Extrem General: Yes normal to inspection and No edema Coding Level of Care Code New Pt Level 4 (84053) Diagnoses Congestive heart failure I50.9 Cardiomyopathy I42.9 Type 2 diabetes mellitus with hyperglycemia E11.65 Hyperlipidemia LDL goal <100 E78.5 Internal derangement of left knee M23.92 Essential hypertension I10 Overweight (BMI 25.0-29.9) E66.3 Coronary artery disease I25.10 History of left knee replacement Z96.652 Atrial fibrillation I48.91 CKD (chronic kidney disease) N18.9 Hypothyroid E03.9 Additional Codes JAMI-7 Assessment Billing - JAMI-7 Assessment Tool: JAMI-7 Assessment 33300 ([id number]) PHQ-9 - 38790 - PHQ-9 Billing: Yes ([id number]) Assessment & Plan Assessment & Plan (1) Congestive heart failure: Comment: reduced EF Code(s): I50.9 - Heart failure, unspecified Category: Medical (2) Cardiomyopathy: Code(s): I42.9 - Cardiomyopathy, unspecified Category: Medical (3) Type 2 diabetes mellitus with hyperglycemia: Code(s): E11.65 - Type 2 diabetes mellitus with hyperglycemia Category: Medical (4) Hyperlipidemia LDL goal <100: Code(s): E78.5 - Hyperlipidemia, unspecified Category: Medical (5) Internal derangement of left knee: Code(s): M23.92 - Unspecified internal derangement of left knee Category: Medical (6) Essential hypertension: Code(s): I10 - Essential (primary) hypertension Category: Medical (7) Overweight (BMI 25.0-29.9): Code(s): E66.3 - Overweight Category: Medical (8) Coronary artery disease: Comment: [place] 12/2024 CABG 12/2024 Dr. Broderick Hobson Code(s): I25.10 - Atherosclerotic heart disease of [place] coronary artery without angina pectoris Category: Medical (9) History of left knee replacement: Comment: 04/2023 Dr. Kaminski Code(s): Z96.652 - Presence of left artificial knee joint Category: Surgical (10) Atrial fibrillation: Comment: limited 12/2023 in hospital, no anticoagulation Code(s): I48.91 - Unspecified atrial fibrillation Category: Medical (11) CKD (chronic kidney disease): Code(s): N18.9 - Chronic kidney disease, unspecified Category: Medical (12) Hypothyroid: Comment: 12/2023 Code(s): E03.9 - Hypothyroidism, unspecified Category: Medical Plan - Continue management of congestive heart failure and monitor symptoms. Evaluate BNP levels to assess active cardiac stress. - Maintain diabetic control with current regimen of TruJeo and Humalog, consider A1c levels for glycemic management. - Follow-up with cardiology on plans for ongoing heart evaluation. - Monitor renal function, continue dietary modifications for potassium restriction. - Encourage adherence to dietary and exercise regimen to support overall health. - Discuss options for managing peripheral neuropathy, consider referral for occupational or physical therapy for improved digital function. - Evaluate thyroid function and adjust Levothyroxine dosage as needed. - Advise continued follow-ups to monitor potential reoccurrences of atrial fibrillation. I have discussed with the patient the chronic nature of his heart failure and its management, including the importance of adherence to his medication regimen and dietary modifications. I explained the role of BNP in evaluating heart failure status and agreed to follow up on these results for ongoing assessment. The patient was informed about the recurrence of his atrial fibrillation post- surgery and the benefits of his current therapeutic strategy. Treatment for hypothyroidism will be continued as the patient adheres to prescribed Levothyroxine. Interventional history involving his knee and lumbar spine was acknowledged, with a proposal for continued rehabilitation and support. All preventative measures such as diet modifications and physical activity have been reinforced. The need for close monitoring of diabetes and cardiovascular risk factors through consistent follow-ups was emphasized, with an appraisal of lifestyle adjustments to aid in maintaining health. - Continue taking all prescribed medications and follow up on blood work results. - Monitor and maintain a low-potassium diet. - Keep up your walking routine and stay hydrated with adequate water intake. - Ensure annual vaccinations are up-to-date and consider a shingles vaccine. - Schedule follow-ups with your pcat instructor and primary physician for ongoing assessments. - Seek medical attention if experiencing new or worsening symptoms such as chest pain, breathing difficulties, or sudden swelling. - Maintain communication about test results and physician consultations for integrated care management. Orders: Orders Complete Blood Count Auto Diff Today E11.65 - Type 2 diabetes mellitus with hyperglycemia Comprehensive Met. Panel Today E11.65 - Type 2 diabetes mellitus with hyperglycemia Creatinine Urine Today E11.65 - Type 2 diabetes mellitus with hyperglycemia Microalbumin, Random (w Creat) Today E11.65 - Type 2 diabetes mellitus with hyperglycemia Lipid Panel Today E11.65 - Type 2 diabetes mellitus with hyperglycemia, E78.00 - Pure hypercholesterolemia, unspecified Thyroid Stimulating Hormone Today E11.65 - Type 2 diabetes mellitus with hyperglycemia Free T4 (Free Thyroxine) Today E11.65 - Type 2 diabetes mellitus with hyperglycemia B Type Natriuretic Peptide Today E11.65 - Type 2 diabetes mellitus with hyperglycemia Prostate Specific Antigen Scr Today E11.65 - Type 2 diabetes mellitus with hyperglycemia Vitamin B12 and Folate Today E11.65 - Type 2 diabetes mellitus with hyperglycemia Hemoglobin A1c Today E11.65 - Type 2 diabetes mellitus with hyperglycemia OT Evaluation and Treatment Today G62.9 - Polyneuropathy, unspecified
== END 2024-10-19 14:49 | disposition home or self-care (01) ==
PROVIDERS: PCP Internal Medicine; Visit Provider Internal Medicine
DX: I50.9 Heart failure, unspecified (principal); I42.9 Cardiomyopathy, unspecified; E11.65 Type 2 diabetes mellitus with hyperglycemia; E78.5 Hyperlipidemia, unspecified; M23.92 Unspecified internal derangement of left knee; I12.9 Hypertensive chronic kidney disease with stage 1 through stage 4 chronic kidney disease, or unspecified chronic kidney disease; E66.3 Overweight; I25.10 Atherosclerotic heart disease of native coronary artery without angina pectoris; Z96.652 Presence of left artificial knee joint; I48.91 Unspecified atrial fibrillation; N18.9 Chronic kidney disease, unspecified; E03.9 Hypothyroidism, unspecified

== ENCOUNTER → 2024-10-19 13:35 | Outpatient (BNVA) | payer MEDICARE, SELFPAY | PROVIDERS: PCP Internal Medicine; Visit Provider Internal Medicine | DX: I42.9 Cardiomyopathy, unspecified (principal); E11.65 Type 2 diabetes mellitus with hyperglycemia; E78.5 Hyperlipidemia, unspecified; M23.92 Unspecified internal derangement of left knee; E66.3 Overweight; I25.10 Atherosclerotic heart disease of native coronary artery without angina pectoris; I48.91 Unspecified atrial fibrillation; E03.9 Hypothyroidism, unspecified; I13.0 Hypertensive heart and chronic kidney disease with heart failure and stage 1 through stage 4 chronic kidney disease, or unspecified chronic kidney disease; E11.22 Type 2 diabetes mellitus with diabetic chronic kidney disease; N18.9 Chronic kidney disease, unspecified; I50.9 Heart failure, unspecified | CPT/HCPCS: 96127; 99202 ==

== ENCOUNTER 2024-12-08 13:58 | Outpatient (RCR) | payer MEDICARE, SELFPAY ==
--- NOTE | 2024-11-12 12:16 | MHC.OT.OEV ---
[address] [phone] F: [phone] Occupational Therapy Evaluation Patient Name: Javi Covarrubias Diagnosis: (L) loss of the 4th and 5th finger Date of Onset: Date of Surgery: Attending Provider: Lane Red Prescribed Treatment: MD Follow Up Appointment: History of Current Condition: Patient is a 69 y/o male who was referred to skilled OT for loss of 4ht and 5th finger extension. He reported that the onset stated approximately a year ago, he stated 0/10 pain and no mechanism of injury. He denies numbness/tingling. He has difficulty with extension of the 4th and 5th digit and difficulty with putting on gloves. 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 He enjoys landscape photography and Webcrumb[employer] ball. 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 pickle ball, photography Living Situation, Family and/or Social Support: Lives with Son, [id number] and 3 children Current Level of Function and Occupation Self Care, Employment, Leisure: min (A)ADL/ IADLs Sleep: WFL Driving: WFL Vision: Balance: Pain Assessment Pain Score: Pain Scale Used: Pain Location and Description: 0/10 Aggravating Factors: Alleviating Factors: Skin and Soft Tissue Assessment Skin and Soft Tissue: Comments: skin intact Nerve assessment Ulnar Nerve: Median Nerve: Radial Nerve: Comments: Sensory Assessment Temperature: Light Touch: Proprioception: Vibration: Comments: Edema Assessment Upper Extremity: Lower Extremity: Comments: Dexterity Assessment Dexterity: Comments: Special Tests Comments: AROM(PROM) Strength Cervical Cervical Flexion: Cervical Extension: Cervical Lateral Flexion: Cervical Rotation: Comments: Shoulder Flexion: Extension: Abduction: Internal Rotation: External Rotation: Comments: WFL Flexion: Extension: Abduction: Internal Rotation: External Rotation: Comments: WFL Elbow Flexion: Extension: Pronation: Supination: Comments: WFL Flexion: Extension: Pronation: Supination: Comments: WFL Wrist Flexion: 63 Extension: 47 Ulnar Deviation: 20 Radial Deviation: 11 Comments: Flexion: Extension: Ulnar Deviation: Radial Deviation: Comments: Thumb Thumb CMC Flexion: Thumb MCP Flexion: Thumb IP Flexion: Radial Abduction: Palmar Abduction: Colver (Kapandji 0-10): Comments: WFL Digits Index MCP: PIP: DIP: Long MCP: PIP: DIP: Ring MCP: PIP: DIP: Small MCP: PIP: DIP: Comments: (L) Claw hand deformity no active extension on 4th or 5th; PROM WFLs Gross Grasp: 69lbs.(R); 54lbs.(L) Lateral Pinch: Two-Point Pinch: Three-Jaw Ken: Comments: Patient Education Primary Language: Inspector Hairspring Truing Required: No Current Knowledge: Teaching Method: Education Needs Identified on Evaluation: How did patient/family demonstrate learning? Barriers to Learning: Readiness for Learning: Who was educated? Comments: Plan of Care Assessment: Based on initiate OT evaluation patient presents with a Claw Hand Deformity of the (L)hand indicating ulnar nerve entrapment. Patient will benefit from skilled OT intervention in order to maximize his function and increase his (I) during self care tasks. Thank you for your referral. STG Duration: 4 weeks Short Term Goals: Patient will be (I)/ compliant to orthosis wear schedule Patient will be (I) with HEP LTG Duration: Automotive Manufacturer Goals: same as above Frequency and Duration: The patient will be seen 2x a week for 4 weeks Treatment Plan: Therapeutic Exercise Therapeutic Activity Home Exercise Program Splinting Patient Education Edema Control ADL Training Ultrasound NMES Iontophoresis Paraffin Fluidotherapy MHP Cold Packs Joint Mobilization Soft Tissue Mobilization Kinesiotaping Other (see comments) Skilled OT eval and treat. Electronically Signed By: RODGER Bruno/Omar, CLT Reviewed/agree with student documentation: Therapist: Please sign and return to therapist, Thank you for your referral.
--- NOTE | 2024-12-08 14:12 | MHC.OT.DC ---
[address] [phone] F: [phone] Occupational Therapy Discharge Note Patient Name: Javi Covarrubias Provider: Lane Red Diagnosis: (L) loss of the 4th and 5th finger Date of Surgery: Date of Evaluation: 11/10/24 Date of Discharge: Treatments to Date: 6 Cancellations to Date: No Shows to Date: Discharge Status: Patient Elected to Stop Discharge Summary: Therapist and patient discussed d/c from OT as his 4th and 5th finger appear to have plateaued. Both parties are in agreement. He has an appointment with [facility] for further diagnostic assessment. Should patient require skilled OT intervention in the future patient stated he would contact [facility] therapy. Thank you for your referral, patient was a pleasure to work with. Electronically Signed By: RODGER Bruno/Omar, CLT Reviewed/agree with student documentation: Therapist: Please Sign and return to therapist, thank you for your referral.
== END 2024-12-08 14:14 | disposition home or self-care (01) ==
LOC: HO.OT 13:58
PROVIDERS: PCP Internal Medicine; Visit Provider Internal Medicine
DX: G62.9 Polyneuropathy, unspecified (principal)
CPT/HCPCS: 29130; 97035; 97110; 97140; 97165; 97760

== ENCOUNTER 2025-01-13 06:15 | Outpatient (REF) | payer MEDICARE, SELFPAY ==
[2025-01-13 06:38] LABS: MANUAL DIFF FLAG NO
[2025-01-13 07:25] LABS: Estimated Average Glucose 157 mg/dL; Hemoglobin A1C 190.5518 umol/L; Hemoglobin A1c % 7.1 % (<6.0); Total Hemoglobin (HGBA1C) 3558.4757 umol/L
[2025-01-13 07:53] LABS: Basophils Absolute Auto 0.1 X10*3/uL (0.0-0.2); Basophils Percent Auto 0.6 % (0-2); Eosinophils Absolute Auto 0.3 X10*3/uL (0.0-0.4); Eosinophils Percent Auto 3.6 % (0-4); Hematocrit 42.9 % (42.0-52.0); Hemoglobin 13.7 g/dl (14.0-18.0); Imm Gran Abs Auto 0.03 X10*3/uL (0.00-0.03); Imm Gran Pct Auto 0.4 % (0.0-0.4); Lymphocytes Absolute Auto 1.5 X10*3/uL (1.2-4.9); Lymphocytes Percent Auto 18.4 % (20-40); Mean Corpuscular HGB Conc 31.9 g/dl (31.0-36.0); Mean Corpuscular Hemoglobin 30.9 pg (27.0-33.0); Mean Corpuscular Volume 96.8 fL (80.0-98.0); Mean Platelet Volume 10.6 fL (9.4-12.4); Monocytes Absolute Auto 0.8 X10*3/uL (0.1-1.2); Neutrophils Absolute Auto 5.6 x10*3/uL (2.0-8.3); Platelet Count 175 X10*3/uL (160-400); Red Blood Count 4.43 X10*6/uL (4.60-5.80); Red Cell Distribution Width 13.8 % (11.0-16.0); White Blood Count 8.4 X10*3/uL (4.8-10.8)
[2025-01-13 07:55] LABS: Creatinine Urine 57.97 mg/dL; Microalbum/Creatinine Ratio Ur 53.4 ug/mg cr (<30)
[2025-01-13 07:55] LABS: B Type Natriuretic Peptide 203 pg/mL (<100)
[2025-01-13 08:05] LABS: Alanine Aminotransferase 42 U/L (0-40); Alkaline Phosphatase 58 U/L (39-117); Anion Gap 13 (12-20); Aspartate Amino Transferase 33 U/L (5-37); Bilirubin Total 0.4 mg/dL (0.0-1.0); Blood Urea Nitrogen 27 mg/dL (9-16); Calcium 9.7 mg/dL (8.4-10.2); Carbon Dioxide 24 mmol/L (22-29); Chloride 108 mmol/L (96-108); Cholesterol 105 mg/dL (<200); Estimated Glomerular Filt Rate > 60; Glucose Random 152 mg/dL (60-115); HDL Cholesterol 28 mg/dL (>40); LDL Cholesterol Calculated 54 mg/dL (<100); Potassium 4.9 mmol/L (3.3-5.1); Sodium 140 mmol/L (135-145); Total Protein 6.7 g/dL (6.5-8.0); Triglycerides 117 mg/dL (<150)
[2025-01-13 08:27] LABS: Folate 6.4 ng/mL (> or = 4.0); Prostate Specific Antigen Scr 0.48 ng/mL (<0.05-4.0); Vitamin B12 280 pg/mL (200-900)
[2025-01-13 08:37] LABS: Free T4 (Free Thyroxine) 1.23 ng/dL (0.71-1.85); Thyroid Stimulating Hormone 2.23 uIU/mL (0.32-4.0)
== END 2025-01-13 06:16 | disposition home or self-care (01) ==
LOC: HO.LAB 06:15
PROVIDERS: PCP Internal Medicine; Visit Provider Internal Medicine
DX: E11.65 Type 2 diabetes mellitus with hyperglycemia (principal); E78.00 Pure hypercholesterolemia, unspecified; Z12.5 Encounter for screening for malignant neoplasm of prostate
CPT/HCPCS: 36415; 80053; 80061; 82043; 82570; 82607; 82746; 83036; 83880; 84153; 84439; 84443; 85025

== ENCOUNTER 2025-01-19 14:44 | Outpatient (AMB) | payer MEDICARE, SELFPAY ==
--- NOTE | 2025-01-19 14:48 | A.OFFPC_ITS ---
Vital Signs 01/19/25 14:49 Height 5 ft 10 in Weight 209 lb 4 oz BMI 30.0 BP 120/50 L Blood Pressure Location Lt brachial Position Sitting Pulse 60 Pulse Source Pulse Oximeter Temp 97.3 F Temp Source Temporal Artery Scan Pulse Oximetry (%) 97 Oxygen Delivery Method Room Air Intake Visit Reasons: Annual Exam Intake Note: Patient is here today for a physical. 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 Required: No Yard Pilot: Not Required per policy Accompanied by: Self / Same As Patient Allergies No Known Allergies Allergy (Verified 01/19/25 14:48) Medication List - Last Reconciled 01/19/[address] MD aspirin 81 mg PO DAILY 90 days atorvastatin 80 mg PO BEDTIME blood sugar diagnostic ([employer] Verio test strips) 4 times a day cholecalciferol (vitamin D3) 50 mcg PO DAILY dapagliflozin propanediol (Farxiga) 10 mg PO DAILY docusate sodium (Colace) 100 mg PO DAILY insulin glargine U-300 conc (Toujeo Max U-300 SoloStar) 32 units (0.1067 mL) subcut DAILY 90 days insulin lispro (Humalog KwikPen (U-100) Insulin) 8 - 12 units (0.08 - 0.12 mL) subcut TID lancets As directed levothyroxine 125 mcg PO DAILY patiromer calcium sorbitex (Veltassa) 16.8 grams PO DAILY pen needle, diabetic (BD Ultra-Fine Manasa Pen Needle) 1 ea subcut QID sacubitril-valsartan 49-51 mg (Entresto) 1 tab PO BID Tobacco use date assessed: 01/19/25 Fall risk assessment: No Falls in past year Last assessed Fall Risk: 01/19/25 Dental Screening Dental Screen Date: 10/19/24 [facility] Medical History (Updated 01/19/25 @ 15:[address] MD) Abnormal echocardiogram Pre-procedural cardiovascular examination Obesity due to excess calories Pancreatitis Vitamin D deficiency Type 2 diabetes mellitus with diabetic polyneuropathy Essential hypertension Hyperlipidemia LDL goal <100 Surgical History (Updated 01/19/25 @ 14:54 by VLADIMIR Metcalf) History of permanent cardiac pacemaker placement Hx of bilateral cataract extraction Hx of eye surgery History of neck surgery Family History Father Diabetes Mother No problems noted. 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 [employer] Cognitive needs: No Hearing needs: No Vision needs: No Questionnaire Thrive Questionnaire Date Thrive assessed: 10/12/24 I am a: Patient What is your living situation today?: I have a steady place to live Within the past 12 months, did the food you bought not last and you didn't have the money to get more?: Never true Within the past 12 months, did you worry whether your food would run out before you got money to buy more?: Never true Do you have trouble paying for medicines?: No Do you have trouble getting transportation to medical appointments?: No Do you have trouble paying your heating and electricity bill?: No Do you have trouble taking care of your child, family member or friend?: No Do you have trouble with day-to-day activities such as bathing, preparing meals, shopping, managing finances, etc.?: No Are you currently unemployed and looking for a job?: No Are you interested in more education?: No Please select the resources that you would like help with: None Currently or been in a relationship where the following occur: No concerns reported THRIVE Score: 0 JAMI-7 AMB Questionnaire JAMI-7 Date JAMI - 7 assessed: 10/19/24 Source: Developed by Drs. Lalit Marin, Danna Wang, Vasiliy Helms and colleagues, with an educational jules from [email or web address]. Review of Systems Const Denies poor appetite and Denies weakness Eyes Denies no additional complaints ENT Reports Normal hearing present, Denies dizziness, Denies nasal congestion, Denies tinnitus and Denies sore throat Card Denies chest pain, Denies syncope, Denies rapid heart rate and Denies dyspnea Resp Denies cough and Denies dyspnea GI Denies change in stool character, Reports constipation, Denies diarrhea, Denies nausea and Denies vomiting Denies dysuria and Denies urinary frequency Neuro Reports Normal hearing present, Denies confusion, Denies dizziness, Denies syncope and Denies weakness Psych Denies confusion Physical exam (Primary Care) Vital Signs: Last Vital Signs Temp 97.3 F 01/19/25 14:49 Pulse 60 01/19/25 14:49 BP 120/50 L 01/19/25 14:49 Pulse Ox 97 01/19/25 14:49 Oxygen Delivery Method Room Air 01/19/25 14:49 BMI result Body Mass Index 30.0 Tobacco/Smoking Status: Tobacco use Status Tobacco use date assessed 01/19/25 01/19/25 14:53 Patient Tobacco Use Status Never used Tobacco 01/19/25 15:40 e-Cigarette/Vaping Use Never Used 01/19/25 15:40 PHQ-9: guaiac negative, prostate N, pin prick and pedal pulse good Thrive Assessment: Date of Thrive Assessment Date Thrive assessed 10/12/24 01/19/25 14:53 Currently or been in a relationship where the following occur: No concerns reported Const General: No confusion Orientation/consciousness: No confusion HENMT Head: Yes normocephalic Ears: external ears normal and TM's normal bilaterally Face and sinus: Yes normal facial exam Mouth: moist mucous membranes Throat: Yes tonsils normal Eyes Conjunctivae: conjunctivae normal Pupils: Equal, round and reactive pupils present and Pupil accommodation reflex normal Direct Ophthalmoscopy: normal light reflex Neck Neck: No lymphadenopathy Thyroid: Thyroid normal Chest Chest palpation & inspection: normal inspection of the chest Resp Effort & Inspection: normal respiratory effort and no audible wheezes Auscultation: clear to auscultation bilaterally, no crackles, no wheezes and lung sounds not diminished Cardio Rate: regular rate Rhythm: regular rhythm Peripheral pulses: radial pulses present and dorsalis pedis present GI Palpation (GI): no masses Auscultation: normal bowel sounds and normoactive bowel sounds Male General Exam: Yes normal external exam Skin General skin exam: no rashes or lesions noted Rashes: no rashes Neuro General: No confusion Cranial nerves: Yes Equal, round and reactive pupils present and Yes Normal hearing present Cognition (Neuro): normal cognition Gait exam (Neuro): Normal gait present Motor exam (neuro): 5/5 motor strength present throughout Deep tendon reflexes (DTR's): Right brachioradialis reflex intensity grade: 2+, Left brachioradialis reflex intensity grade: 2+, Right patellar reflex intensity grade: 2+ and Left patellar reflex intensity grade: 2+ Extrem General: No edema Coding Level of Care Code Est Pt Prev Care >65y(40747) Diagnoses Annual physical exam Z00.00 Tubular adenoma of colon D12.6 LFT elevation R79.89 Type 2 diabetes mellitus with hyperglycemia E11.65 Congestive heart failure I50.9 Essential hypertension I10 Hyperlipidemia LDL goal <100 E78.5 Class 1 obesity due to excess calories with serious comorbidity and body mass index (BMI) of 31.0 to 31.9 in adult E66.09; Z68.31 Body mass index: BMI 31.0-31.9 Obesity classification: adult class 1 (BMI 30 - 34.9) Serious obesity comorbidity presence: with serious comorbidity Hypothyroid E03.9 CKD (chronic kidney disease) N18.9 ICD (implantable cardioverter-defibrillator) in place Z95.810 Assessment & Plan Assessment & Plan (1) Annual physical exam: Code(s): Z00.00 - Encounter for general adult medical examination without abnormal findings Category: Medical Plan: Patient is advised to eat healthy, keep well hydrated, keep active and have adequate sleep. (2) Tubular adenoma of colon: Code(s): D12.6 - Benign neoplasm of colon, unspecified Category: Medical Plan: Patient is reminded about colonoscopy this year (3) LFT elevation: Code(s): R79.89 - Other specified abnormal findings of blood chemistry Category: Medical Plan: Advised to repeat blood test and ultrasound of the abdomen (4) Type 2 diabetes mellitus with hyperglycemia: Code(s): E11.65 - Type 2 diabetes mellitus with hyperglycemia Category: Medical Plan: Decrease the amount of carbohydrate intake, pasta, bread, rice and potatoes are all sugar and that is aside from all the sweet stuff, remember that fruits are good but they are Sweet also. Hemoglobin A1c goal of less than 7.0. Patient on Farxiga 10 mg once a day Toujeo insulin 32 units once a day sliding scale of Humalog (5) Congestive heart failure: Comment: reduced EF Code(s): I50.9 - Heart failure, unspecified Category: Medical Plan: Continue with Entresto weigh daily, continuing with present medication (6) Essential hypertension: Code(s): I10 - Essential (primary) hypertension Category: Medical Plan: Continue with blood pressure medication. Decrease salt intake and exercise on Entresto (7) Hyperlipidemia LDL goal <100: Code(s): E78.5 - Hyperlipidemia, unspecified Category: Medical Plan: Avoid fried foods, chicken skin, eggs, butter margarine, pastries and meat. Be it pork or beef they have a lot of cholesterol atorvastatin 80 mg once a day LDL goal of less than 70 and triglyceride of less than 150 (8) Obesity due to excess calories: Code(s): E66.09 - Other obesity due to excess calories Category: Medical Qualifiers: Body mass index: BMI 31.0-31.9 Obesity classification: adult class 1 (BMI 30 - 34.9) Serious obesity comorbidity presence: with serious comorbidity Qualified Code(s): E66.09 - Other obesity due to excess calories; Z68.31 - Body mass index [BMI] 31.0-31.9, adult Plan: Diet and exercise (9) Hypothyroid: Comment: 12/2023 Code(s): E03.9 - Hypothyroidism, unspecified Category: Medical Plan: Continue with thyroid medication (10) CKD (chronic kidney disease): Code(s): N18.9 - Chronic kidney disease, unspecified Category: Medical Plan: Keep well hydrated, avoid NSAIDs (11) ICD (implantable cardioverter-defibrillator) in place: Comment: November 2024 Code(s): Z95.810 - Presence of automatic (implantable) cardiac defibrillator Category: Medical Plan History of Present Illness The patient is a 69-year-old male presenting for a scheduled physical examination. He has an extensive medical history including Type 2 Diabetes Mellitus, hypertension, and dyslipidemia, managed with a regimen including Farxiga, insulin, Entresto, and atorvastatin. The patient has chronic kidney disease and hypothyroidism, all notably controlled with his current medication regimen. His cardiac health is monitored via a pacemaker/ICD due to a history of atrial fibrillation and coronary artery disease. Recently, his hemoglobin A1c levels have risen to 7.1, above the preferred t hreshold, possibly influenced by recent hospital procedures. Despite mild anemia and slight liver enzyme elevation evident via prior tests, the patient remains active. Fatigue or insufficiency in handling daily tasks appears unmentioned, continuing an exercise regimen of walking and cycling frequently, hoping to incorporate pickleball soon. Previous diagnostic evaluations include a colonoscopy identifying a tubular adenoma and consistent monitoring for cardiomyopathy through echocardiography, indicating some left ventricular dysfunction. Neurological symptoms are noted as functional weakness in the extremities, which have persisted over time without acute pain, leading to the exclusion of serious neurodegenerative conditions upon prior investigation. Health Maintenance - Continued diabetes management with specific A1c goals - Blood pressure and cholesterol control with target numbers discussed - Screening for tubular adenoma with plans for repeat colonoscopy - Documentation and monitoring of liver function due to mild enzyme elevation - Assessment and guidelines for increased water intake during the day and reduced nocturia by modifying evening fluid intake - Encouraged physical activity and planned inclusion of new exercise routines such as pickleball - Recommendations for B12 supplementation due to mild deficiency - Suggested shingles vaccination discussed but currently not recorded in medical records Social History - Regular physical activity including walking 3-4 miles and cycling 10-12 miles - Abstains from alcohol and has never smoked or used recreational drugs - Maintains nighttime hydration, resulting in nocturia - Plans to start playing pickleball, indicating interest in diverse physical activities Review of Systems - Cardiovascular: Denies chest pain, palpitations - Respiratory: Denies shortness of breath, cough is noted - Gastrointestinal: Denies nausea, vomiting, heartburn, utilizes stool softeners for regularity - Genitourinary: Reports nocturia, possibly due to night-time hydration - Neurological: Reports weakness in hands without associated numbness or pain - Musculoskeletal: Denies joint pain/swelling except for mild hand pain recently - Hematology/Lymphatic: Denies overt signs of anemia beyond mild fatigue - Endocrine: Denies symptoms of thyroid imbalance - Other: Denies any fever, dizziness, swelling, skin changes Physical Exam General: Cooperative, healthy appearing, comfortable, no acute distress and well developed Orientation: Patient oriented x3 Limitations: No limitations Head: Normal to inspection Ears: Hearing grossly normal bilaterally Nose: Normal external nose present Face and sinus: Normal facial exam Eyes: Appearance normal, both eyes and all related structures Neck: Normal visual inspection and Yes full ROM Respiratory: Normal respiratory effort and able to speak in complete sentences. Clear to auscultation bilaterally Cardiovascular: Regular rate and rhythm. Normal S1 and S2 GI: Normal to inspection. Soft to palpation and nontender Skin: No rashes or lesions noted Neuro: Patient oriented x3 Extremities: Normal to inspection Results - Labs: Hemoglobin A1c 7.1; elevated liver function test at 42; mild anemia with hemoglobin 13.7; B12 at 280 - Tests and Diagnostics: Creatinine at 1.16; BNP at 203 indicating managed CHF; LDL cholesterol at 54; normal prostate-specific antigen levels; urine positive for protein Plan The patient will continue current medications for diabetes, hypertension, and hypercholesterolemia with adjustments to enhance glycemic control. Surveillance colonoscopy is recommended alongside a repeat of liver function tests within three months. Neuropathy symptoms will require monitoring, and discussions with cardiology regarding beta jonny introduction persist. I encourage continued exercise, hydration moderation, and supplementation. Anticipatory guidance included potential shingles vaccination and foot care for fungal infections. Routine blood work to monitor anemia, renal function, and liver enzymes is planned. Patient was informed and verbally consented to the use of an ambient scribe for clinic note documentation during this visit. Discussion Notes I have discussed the management of diabetes with a target hemoglobin A1c below 7.0, stressing the importance of lifestyle in blood glucose control. Hypertension and hypercholesterolemia management strategies were reinforced, explaining the benefits of maintaining current medication regimens. For nephropathy, I emphasized the need for strict control of diabetes and blood pressure. Vitamin B12 supplementation was advised and potential effects on energy levels noted. Regular physical activity remains a significant focus of patient education for its systemic benefits. We outlined potential upcoming liver ultrasound examinations and further acquaintance with antibody-directed liver functions. We agreed on the need for a repeat colonoscopy, with insights given into the rationale for this follow-up procedure. The importance of timely screening for any potential diabetic complications and careful inspection and uptake of antifungal treatment for his feet were highlighted. We reviewed follow-up appointment intervals to ensure close monitoring, with anticipatory guidance reinforcing routine preventive health measures such as vaccinations and regular exercise. Patient Instructions - Continue taking your current medications for diabetes, blood pressure, cholesterol, and thyroid as prescribed. - Follow the diet and exercise plan discussed; Regularly engage in physical activities like walking and cycling. - Watch your blood sugar levels and aim for a hemoglobin A1c below 7.0. - Schedule your colonoscopy as recommended for regular screening. - Take B12 supplements as advised to address deficiency. - Use antifungal cream for nail infections; keep feet clean and dry. - Schedule a liver ultrasound; repeat blood work will be needed in a few months. - Consult with your linux unix system administrator about adding a beta jonny if necessary. - Stay hydrated but reduce liquids a couple of hours before bedtime. - Discuss the shingles vaccine with your pharmacist. - Contact me if you have any further questions or issues arise. Orders: Orders Complete Blood Count Auto Diff 3 Months R79.89 - Other specified abnormal findings of blood chemistry Comprehensive Met. Panel 3 Months R7. - Other specified abnormal findings of blood chemistry Hemoglobin A1c 3 Months R7. - Other specified abnormal findings of blood chemistry Referrals Gastroenterology Referral D12.6 - Benign neoplasm of colon, unspecified
[2025-01-19 14:49] VITALS: BP 120/50; PULSE 60; TEMP 36.3; O2SAT 97
== END 2025-01-19 16:05 | disposition home or self-care (01) ==
LOC: HO.HMCH 14:44
PROVIDERS: PCP Internal Medicine; Visit Provider Internal Medicine
DX: Z00.00 Encounter for general adult medical examination without abnormal findings (principal); I12.9 Hypertensive chronic kidney disease with stage 1 through stage 4 chronic kidney disease, or unspecified chronic kidney disease; E11.65 Type 2 diabetes mellitus with hyperglycemia; I50.9 Heart failure, unspecified; D12.6 Benign neoplasm of colon, unspecified; R79.89 Other specified abnormal findings of blood chemistry; E78.5 Hyperlipidemia, unspecified; N18.9 Chronic kidney disease, unspecified; E66.09 Other obesity due to excess calories; Z68.31 Body mass index [BMI] 31.0-31.9, adult; E03.9 Hypothyroidism, unspecified; Z95.810 Presence of automatic (implantable) cardiac defibrillator

== ENCOUNTER → 2025-01-19 14:44 | Outpatient (BNVA) | payer MEDICARE, SELFPAY | PROVIDERS: PCP Internal Medicine; Visit Provider Internal Medicine | DX: Z00.00 Encounter for general adult medical examination without abnormal findings (principal); D12.6 Benign neoplasm of colon, unspecified; E11.65 Type 2 diabetes mellitus with hyperglycemia; R79.89 Other specified abnormal findings of blood chemistry; I13.0 Hypertensive heart and chronic kidney disease with heart failure and stage 1 through stage 4 chronic kidney disease, or unspecified chronic kidney disease; I50.9 Heart failure, unspecified; N18.9 Chronic kidney disease, unspecified; E78.5 Hyperlipidemia, unspecified; E03.9 Hypothyroidism, unspecified; E66.09 Other obesity due to excess calories; Z68.31 Body mass index [BMI] 31.0-31.9, adult; Z95.810 Presence of automatic (implantable) cardiac defibrillator | CPT/HCPCS: 99397 ==

== ENCOUNTER 2025-03-11 09:11 | Outpatient (REF) | payer MEDICARE, SELFPAY ==
--- NOTE | ~2025-03-11 | US_ITS ---
CLINICAL HISTORY: R79.89 - Other specified abnormal findings of blood chemistry US abdomen complete Comparison: None Findings: The visualized pancreas is normal. The aorta and inferior vena cava are normal caliber. The liver is normal in size and echotexture. There is no intrahepatic bile duct dilatation. The common duct is 3 mm in diameter. The gallbladder is normal. There is no sonographic Mendes sign. The main portal vein is antegrade. The right kidney is 12.3 cm in length. 2 cm simple appearing cyst within the right kidney. The left kidney is 12 cm in length. The spleen is normal. No ascites. IMPRESSION: 1. Normal complete abdominal ultrasound. This document has been electronically signed by: Dilia Peter MD on 03/11/2025 15:39:56
--- OUTSIDE RECORDS SUMMARY | 2025-03-11 09:51 | XMS_ITS | Patient Health Record ---
Author Organization [facility] Address [address] [place] [id number] Care Team Providers Care Core Cutter And Reamer Name Role Phone Po Lane MYLES Primary Care Provider Lalit Foreman [phone] Reason For Referral No Information Medications Medication SIG (Take, Route, Fr equency, Duration) Notes Start Date End Date Status metFORMIN HCl 1000 1 TABLET ORALLY ONCE A DAY Active Aspirin 81 Active Vitamin D3 Active Pioglitazone HCl 15 ONCE A DAY Active HumaLOG 100 DIRECTED DIREC MARK DIRECTED Active Toujeo Max SoloStar 300 DIRECTED ORALLY AT HS Active Lisinopril 20 1 TABLET ORALLY ONCE A DAY Active Immunizations Vaccine Route Administration Date Status Comme nts Influenza Unknown 05/31/2018 Administered Social History Tobacco Use: Social History Observation Description Date Details (start date - stop date) Never Smoker NA - NA Tobacco Use/Smoking Question Answer Notes Patient is a nonsmoker Alcohol Screen Question Answer Notes Did you have a drink contain ing alcohol in the past year? Yes How often did you have a dri nk containing alcohol in the past year? Never (0 point) How many drinks did you have on a typical day when you were drinking in the past year? 1 or 2 drinks (0 point) How often did you have 6 or more drinks on one occasion in the past year? Never (0 point) Points 0 Interpretation Negative Section Notes: Nonsmoker; no sig alcohol Problems Problem Type SNOMED Code ICD Code Onset Dates Problem Status W/U Status Risk Notes Problem [id number] Encounter for screening for malignant neoplasm of colon (Z12.11) Active confirmed Problem 482705306507892 Preprocedural examination (Z01.818) Active confirmed Problem 190962956 Hx of adenomatou s colonic polyps (Z86.010) Active confirmed Problem 01089382414553 History of pancreatitis (Z87.19) Active confirmed Plan Of Treatment Pending Test Test Name Order Date GI BIOPSY 07/08/2019 Future Test Test Name Order Date COLONOSCOPY 11/18/2018 Next Appt Details Provider Name:Lalit Hand , 05/13/2025 10:00:00 AM, [address], [address], [place], [address], Insurance Providers Payer Name Payer Address Payer Phone Subscriber Number Group Number Insured Name Patient Relationship to Insured Coverage Start Date Coverage End Date [facility]) [address] [place] [address] [phone] [id number] HENNY HAWTHORNE Self - patient is the insured Medical (General) History Medical History History ICD Code Hx of pancreatitis--2001--? etiology---may have been from elevated TG's of > 800 at that time--no alcohol nor associated gallbladder disease--no problems since--- he was treated with Lopid at that time. IDDM HTN Denies [place],DM,CVA,Lung disease,renal dise ase Colonoscopy in 2007--small tubular adeno ma removed Hypertriglyceridemia Surgical History Surgery Date(Month/Year) Neck Eye at age 7
== END 2025-03-11 09:12 | disposition home or self-care (01) ==
LOC: HO.US 09:11
PROVIDERS: PCP Internal Medicine; Visit Provider Internal Medicine
DX: R79.89 Other specified abnormal findings of blood chemistry (principal)
CPT/HCPCS: 76700

== ENCOUNTER → 2025-03-11 09:13 | Outpatient (BNV) | payer MEDICARE, SELFPAY | PROVIDERS: PCP Internal Medicine; Visit Provider Radiology Diagnostic Radiology | DX: R79.89 Other specified abnormal findings of blood chemistry (principal) | CPT/HCPCS: 76700 ==

== ENCOUNTER 2025-05-20 14:05 | Outpatient (AMB) | payer MEDICARE, SELFPAY ==
--- OUTSIDE RECORDS SUMMARY | 2025-05-13 06:00 | XMS_ITS ---
Author Organization [facility] Address [address] [place] [id number] Care Team Providers Care Bottling Attendant Name Role Phone Lane Red MD Primary Care Provider Lalit Foreman [phone] Allergies No Known Allergies REASON FOR VISIT Patient presents today for a colon screening Medications Medication SIG (Take, Route, Frequency, Duration) Notes Start Date End Date Status Carvedilol 6.25 MG TAKE 1 TABLET BY YULI TH TWICE A DAY Oral for 90 Days Active Entresto 49-51 MG Oral for 30 Days Active Farxiga 10 MG Oral for 30 Days Active Levothyroxine Sodium 125 MCG Oral for 90 Days Active Vitamin D3 Active Atorvastatin Calcium 80 MG Oral for 90 Days Active Aspirin 81 Active Toujeo Max SoloStar 300 DIRECTED ORALLY AT HS Active HumaLOG 100 DIRECTED DIREC MARK DIRECTED Active Social History Tobacco Use: Social History Observation [...] Negative Section Notes: Nonsmoker; no sig alcohol Vital Signs Blood pressure systolic 111 mm Hg 05/13/20 25 Blood pressure diastolic 77 mm Hg 08/14/2 025 Height 70 in 05/13/2025 Weight 209 lbs 05/13/2025 BMI 29.99 kg/m2 05/13/2025 Procedures Procedure Date Ordered Date Performed Result Body Sit e COLONOSCOPY 05/13/2025 N/A Encounters Encounter Location Date Provider Diagnosis [facility] [address] [place] [address] 05/13/2025 Lalit Yazan Encounter for screen ing for malignant neoplasm of colon Z12.11 ; Hx of adenomatous colonic polyps Z86.010 and Preprocedural examination Z01.818 Assessments Encounter Date Diagnosis (ICD Code) Assessment Notes Treatment Notes Treatment Clinical Notes Section Notes 05/13/2025 Encounter for screening for malignant neoplasm of colon (ICD-10 - Z12.11) Overall, Javi appears well. He is not having any new or worrisome GI complaints. I did recommend a follow-up colonoscopy for further screening given his history of tubular adenomas and his last colonoscopy being just about 6 years ago. We did review the rationale for that in regard to colon cancer prevention. Full consent has been obtained for this, including risk of bleeding and perforation. The procedure will be done with monitored anesthesia care. He was given the below instructions regarding adjustment of his medications for the procedure. We will also obtain a cardiology clearance note from Dr. Acosta at [facility]. Javi was comfortable with this plan. Thank you again for allowing me to participate in Javi's care. I shall continue to keep you advised of his progress. 05/13/2025 Hx of adenomatous colonic polyps (ICD-10 - Z86.010) Overall, Javi appears well. He is not having any new or worrisome GI complaints. I did recommend a follow-up colonoscopy for further screening given his history of tubular adenomas and his last colonoscopy being just about 6 years ago. We did review the rationale for that in regard to colon cancer prevention. Full consent has been obtained for this, including risk of bleeding and perforation. The procedure will be done with monitored anesthesia care. He was given the below instructions regarding adjustment of his medications for the procedure. We will also obtain a cardiology clearance note from Dr. Acosta at [facility]. Javi was comfortable with this plan. Thank you again for allowing me to participate in Javi's care. I shall continue to keep you advised of his progress. 05/13/2025 Preprocedural examination (ICD-10 - Z01.818) Overall, Javi appears well. He is not having any new or worrisome GI complaints. I did recommend a follow-up colonoscopy for further screening given his history of tubular adenomas and his last colonoscopy being just about 6 years ago. We did review the rationale for that in regard to colon cancer prevention. Full consent has been obtained for this, including risk of bleeding and perforation. The procedure will be done with monitored anesthesia care. He was given the below instructions regarding adjustment of his medications for the procedure. We will also obtain a cardiology clearance note from Dr. Acosta at [facility]. Javi was comfortable with this plan. Thank you again for allowing me to participate in Javi's care. I shall continue to keep you advised of his progress. Plan Of Treatment Pending Test Test Name Order Date COLONOSCOPY 05/13/2025 Next Appt Details Provider Name:Lalit Hand , 08/09/2025 11:30:00 AM, [address] [place] [address], [phone], Progress Notes * JAVI HAWTHORNEDOB:1955 (70 yo M)Acc No.[id number]:05/13/2025 Progress Notes Patient: JAVI RAINES Provider: Juan R Hand MD :1955 A ge:70 Y S ex:Male Date:05/13/2025 Address:[address] [place] [address] Pcp:Lane Red MD Subjective: * Chief Complaints: * 1 . Patient presents today for a colon screening. * HPI: i ncontinence: I saw Javi in the office today for evaluation of his personal history of tubular adenomas of the colon and need for colorectal cancer screening. I last saw Javi in 2019, at which time he underwent a screening colonoscopy with removal of 2 small tubular adenomas. He presently feels well. He enjoys a good appetite and denies any segment heartburn or dysphagia. His bowel movements have been somewhat constipated, which is his baseline. In fact, he required a 2-day prep for the colonoscopy in 2019. He has not noticed any hematochezia, melena, nor other changes in the bowel movements. He denies any abdominal pain, jaundice, nor unintentional weight loss. He denies any known family history of colorectal cancer. He did have a DC last year and describes some congestive heart failure in association with that. He reports a cardiac ejection fraction of 22%. He had a pacemaker placed this year. However he describes that he feels well and is quite active with golf and pickleball. * Medical History: H x of pancreatitis--2001--? 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 Transient Afib. Sees Dr. Acosta from [facility], Pacemaker 2024, Screening colonoscopy in 2018 with removal of small tubular adenomas. * Surgical History: [place] , Eye at age 7 , triple bypass 2023, pacemaker 2024, back surgery pinched nerve , left knee replacement . * Family History: F ather: , diagnosed with Diabetes. M other: , lung cancer. no known hx of colon cancer. * Social History: T obacco Use: T obacco Use/Smoking P atient is a n onsmoker. D rugs/Alcohol: A lcohol Screen D id you have a drink containing alcohol in the past year? Y es, H ow often did you have a drink containing alcohol in the past year? N ever (0 point), H ow many drinks did you have on a typical day when you were drinking in the past year? 1 or 2 drinks (0 point), H ow often did you have 6 or more drinks on one occasion in the past year? N ever (0 point), P oints 0 , I nterpretation N egative. M iscellaneous: M arital status: . 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 N onsmoker; no sig alcohol. * Medications: T aking Toujeo Max SoloStar 300 UNITS DIRECTED ORALLY AT HS , Taking HumaLOG 100 UNITS DIRECTED DIRECTED DIRECTED , Taking Vitamin D3 , Taking Aspirin 81 , Taking Atorvastatin Calcium 80 MG Tablet Oral , Taking Levothyroxine Sodium 125 MCG Tablet Oral , Taking Farxiga 10 MG Tablet Oral , Taking Entresto 49-51 MG Tablet Oral , Taking Carvedilol 6.25 MG Tablet TAKE 1 TABLET BY MOUTH TWICE A DAY Oral , Discontinued metFORMIN HCl 1000 MG 1 TABLET ORALLY ONCE A DAY , Discontinued Lisinopril 20 MG 1 TABLET ORALLY ONCE A DAY , Discontinued Pioglitazone HCl 15 MG ONCE A DAY , Medication List reviewed and reconciled with the patient * Allergies: N .K.D.A. Objective: * Vitals: W t:209lbs, Ht: 70 in, BMI:29.99Index, BP:111/77mm Hg, Wt-k.8. Assessment: * Assessment: 1. E ncounter for screening for malignant neoplasm of colon - Z12.11 (Primary) 2 . H x of adenomatous colonic polyps - Z86.010 3 . P reprocedural examination - Z01.818 Overall, Javi appears wel l. He is not having any new or worrisome GI complaints. I did recommend a follow-up colonoscopy for further screening given his history of tubular adenomas and his last colonoscopy being just about 6 years ago. We did review the rationale for that in regard to colon cancer prevention. Full consent has been obtained for this, including risk of bleeding and perforation. The procedure will be done with monitored anesthesia care. He was given the below instructions regarding adjustment of his medications for the procedure. We will also obtain a cardiology clearance note from Dr. Acosta at [facility]. Javi was comfortable with this plan. Thank you again for allowing me to participate in Javi's care. I shall continue to keep you advised of his progress. Plan: * Treatment: 2.?Hx of adenomatous colonic polyps?Procedure: COLONOSCOPY* With MAC and a full 2 day pr ep.Do not take any aspirin on the morning of the procedure.Do not take your Farxiga for 3 full days before the procedure.Take only half your insulin the night before and the morning of the procedure. You can review the Insulin instructions with your PCP as well.We will get a clearance letter from Dr. Acosta from cardiology.Do not use metformin the night before or the morning of the procedure.sched for 08/09/25 at 11:30 am * Procedure Codes: 4 5378 DIAGNOSTIC COLONOSCOPY * Preventive Medicine: Counseling: C are goal follow-up plan: A sanket Normal BMI Follow-up G iving encouragement to exercise, B DC management provided Y es. * * The named appointment provid er may or may not be the originator of this progress note, and it is not deemed complete until electronically signed by the appointment provider. Sign off status: Pending * Provider: Juan R Hand MD Date: 0 05/13/2025 Generated for Tammie rubio/Miryam/Margoitting on: 05/20/2025 02:14 PM EDT
--- OUTSIDE RECORDS SUMMARY | 2025-05-20 14:15 | XMS_ITS | Clinical Summary ---
Author Organization [facility] Address [address] [address] Phone Care Team Providers Care Fiber Optics Supervisor Name Role Phone Chaz Leahy MD Primary Care Provider [phone] Allergies Active Allergy Reactions Criticality Noted Date Comments Celecoxib 10/22/2023 causes swelling in lower extremities Medications amoxicillin (AMOXIL) 500 MG capsule TAKE 4 CAPSULES BY MOUTH 1 HOUR PRIOR TO APPOINTMENT 3 Active acetaminophen (TYLENOL) 325 mg tablet Take 650 mg by mouth. 3 Active atorvastatin (LIPITOR) 20 MG tablet Take 20 mg by mouth daily. Active cholecalciferol (VITAMIN D3) 2,000 unit capsule Take 1 capsule by mouth every morning. 3 Active TOUJEO MAX U-300 SOLOSTAR 300 unit/mL (3 mL) InPn INJECT 32 UNITS EVERY DAY Active lisinopril (PRINIVIL,ZESTR IL) 20 MG tablet Take 20 mg by mouth daily. Active metFORMIN (GLUCOPHAGE) 1000 MG tablet Take 1,000 mg by mouth 2 (two) times a day. Active pantoprazole (PROTONIX) 40 MG tablet Take 40 mg by mouth. 3 Active pioglitazone (ACTOS) 30 MG tablet Take 30 mg by mouth daily. Active empagliflozin (JARDIANCE) 25 mg tablet Take 25 mg by mouth daily. 3 Active insulin lispro (HUMALOG KWIKPEN INSULIN SUBQ) Inject under the skin. Active Active Problems No known active problems Immunizations Immunization Administration Dates Next Due INFLUENZA, SPLIT VIRUS, TRIV ALENT W/ PRESERVATIVE IM 07/17/2021,10/09/2012 Influenza High-Dose Quadriva lent Preservative Free IM 07/19/2023 Influenza Quadrivalent MDCK w/Preservative IM 09/09/2019 Influenza Quadrivalent Preservative Free IM 2022,07/15/2020,07/21/2018 Pneumococcal conjugate PCV20 08/02/2023 Pneumococcal polysaccharide PPSV23 09/10/2018 Tdap 09/10/2018 Social History Tobacco Use Types Packs/Day Years Used Date Smoking Tobacco: Never Smokeless Tobacco: Never Tobacco Cessation:Counseling Given: Not Answered Education Answer Date Recorded Are you interested in more education? Not on andrez e 10/22/2023 Are you concerned about learning? Not on file 10/22/2023 No 10/22/2023 No 10/22/2023 Digital Access Answer Date Recorded No 10/22/2023 No 10/22/2023 Reliable internet access at home? Not on file 10/22/2023 Device with a working camera? Not on file Sex and Gender Information Value Date Recorded Sex Assigned at Not on file Legal Sex Male 9:18 AM EST Gender Identity Not on file Sexual Orientation Not on file Last Filed Vital Signs Vital Sign Reading Time Taken Comments Blood Pressure 135/83 10/22/2023 9:33 AM EST Pulse 90 10/22/2023 9:33 AM EST Temperature 37.4 C (99.4 F) 10/22/2023 9:33 AM EST Respiratory Rate 28 10/22/2023 9:33 AM EST Oxygen Saturation 98% 10/22/2023 9:33 AM EST Inhaled Oxygen Concentration - - Weight 97.5 kg (215 lb) 10/22/2023 9:33 AM EST p er pt Height - - Body Mass Index - - Plan of Treatment Health Maintenance Due Date Last Done Comments CREATININE LEVEL 1955 LIPID PANEL 1955 POTASSIUM LEVEL 1955 DEPRESSION SCREENING 1969 HEPATITIS C SCREENING 1975 COLOGUARD 2002 COLONOSCOPY 2002 COLORECTAL CANCER SCREENING 2002 FIT TEST 2002 FOBT 2002 SIGMOIDOSCOPY 2002 VIRTUAL COLONOSCOPY 2002 ZOSTER VACCINES (1 of 2) 2007 RSV VACCINE (1 - Risk 60-74 years 1-dose series) 2017 COVID-19 VACCINE ( season) 2024 07/19/2023, 07/04/2022, 07/17/2021, Additional history exists Adult Td,Tdap Booster 09/10/2028 09/10/2018 PNEUMOCOCCAL VACCINES (50+ years) Completed 08/02/2023, 09/10/2018 SMOKING STATUS SCREENING (Once After 26 Yrs) Completed 10/22/2023 HEPATITIS A VACCINES Aged Out No long er eligible based on patient's age to complete this topic HIB VACCINES Aged Out No longer eligi ble based on patient's age to complete this topic MENINGOCOCCAL VACCINES (ACWY) Aged Out No longer eligible based on patient's age to complete this topic MENINGOCOCCAL VACCINES (B) Aged Out N o longer eligible based on patient's age to complete this topic Medical Devices Not on file Insurance [employer] REPL[employer] MEDICARE PREFERRED PPO REPLACEMENT Care Teams Fiber Optics Supervisor Relationship Specialty Start Date End Date Chaz Leahy MD [address] [place] [id number] PCP - General Internal Medicine 10/22/23 Additional Source Comments The information contained in this document represents components of the legal health record. It is not the complete legal health record.[facility]
--- NOTE | 2025-05-20 14:18 | MHC.PC.OV ---
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 Required: No Accompanied by: Self / Same As Patient Allergies No Known Allergies Allergy (Verified 05/20/25 14:19) Medication List - Last Reconciled 05/20/[address] Red MD aspirin 81 mg PO DAILY 90 days atorvastatin 80 mg PO BEDTIME blood sugar diagnostic (Spectra7 Microsystemsuch Verio test strips) 4 times a day cholecalciferol (vitamin D3) 50 mcg PO DAILY dapagliflozin propanediol (Farxiga) 10 mg PO DAILY docusate sodium (Colace) 100 mg PO DAILY insulin glargine U-300 conc (Toujeo Max U-300 SoloStar) 32 units (0.1067 mL) subcut DAILY insulin lispro (Humalog KwikPen (U-100) Insulin) 8 - 12 units (0.08 - 0.12 mL) subcut TID lancets As directed levothyroxine 125 mcg PO DAILY metformin 1,000 mg PO BID patiromer calcium sorbitex (Veltassa) 16.8 grams PO DAILY pen needle, diabetic (BD Ultra-Fine Manasa Pen Needle) 1 ea subcut QID sacubitril-valsartan 49-51 mg (Entresto) 1 tab PO BID Tobacco use date assessed: 05/20/25 Fall risk assessment: No Falls in past year Last assessed Fall Risk: 05/20/25 Dental Screening Dental Screen Date: 05/20/25 Did you have a dental visit in the last 12 months?: Yes Did you have a dental problem in the last 6 months where you did not have access to dental care?: No Was dental information given to patient?: Patient has dentist [facility] Medical History (Updated 05/20/25 @ 14:[address] MD) Abnormal echocardiogram Pre-procedural cardiovascular examination Obesity due to excess calories Pancreatitis Vitamin D deficiency Type 2 diabetes mellitus with diabetic polyneuropathy Essential hypertension Hyperlipidemia LDL goal <100 Surgical History History of permanent cardiac pacemaker placement Hx of bilateral cataract extraction Hx of eye surgery History of neck surgery Family History Father Diabetes Mother No problems noted. 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 1. Little interest or pleasure in doing things: not at all 2. Feeling down, depressed, or hopeless: not at all 3. Trouble falling or staying asleep, or sleeping too much: not at all 4. Feeling tired or having little energy: not at all 5. Poor appetite or overeating: not at all 6. Feeling bad about yourself - or that you are a failure or have let yourself or your family down: not at all 7. Trouble concentrating on things, such as reading the newspaper or watching television: not at all 8. Moving or speaking so slowly that other people could have noticed. Or the opposite - being so fidgety or restless that you have been moving around a lot more than usual: not at all 9. Thoughts that you would be better off or of hurting yourself in some way: not at all Total score: 0 Depression Screening Interpretation: Negative Depression Screening Done: Yes Source: Developed by Drs. Lalit Marin, Danna Wang, Vasiliy Helms and colleagues, with an educational jules from [employer]. Thrive Questionnaire Date Thrive assessed: 10/12/24 I am a: Patient What is your living situation today?: I have a steady place to live Within the past 12 months, did the food you bought not last and you didn't have the money to get more?: Never true Within the past 12 months, did you worry whether your food would run out before you got money to buy more?: Never true Do you have trouble paying for medicines?: No Do you have trouble getting transportation to medical appointments?: No Do you have trouble paying your heating and electricity bill?: No Do you have trouble taking care of your child, family member or friend?: No Do you have trouble with day-to-day activities such as bathing, preparing meals, shopping, managing finances, etc.?: No Are you currently unemployed and looking for a job?: No Are you interested in more education?: No Please select the resources that you would like help with: None Currently or been in a relationship where the following occur: No concerns reported THRIVE Score: 0 AUDIT C Alcohol Use Questionnaire (AUDIT-C) 1. How often do you have a drink containing alcohol?: Never Total Score: 0 JAMI-7 AMB Questionnaire JAMI-7 Date JAMI - 7 assessed: 05/20/25 Source: Developed by Drs. Lalit Marin, Danna Wang, Vasiliy Helms and colleagues, with an educational jules from [employer]. Physical exam (Primary Care) Vital Signs: Last Vital Signs Pulse 60 05/20/25 14:20 BP 122/52 L 05/20/25 14:20 Pulse Ox 98 05/20/25 14:20 Oxygen Delivery Method Room Air 05/20/25 14:20 BMI result Body Mass Index 29.2 Tobacco/Smoking Status: Tobacco use Status Tobacco use date assessed 05/20/25 05/20/25 14:26 Patient Tobacco Use Status Never used Tobacco 05/20/25 14:26 e-Cigarette/Vaping Use Never Used 05/20/25 14:26 PHQ-9: PHQ-9 Score PHQ-9: Total score 0 05/20/25 14:43 Depression Screening Interpretation: Negative Thrive Assessment: Date of Thrive Assessment Date Thrive assessed 10/12/24 05/20/25 14:26 Currently or been in a relationship where the following occur: No concerns reported Const General: alert; No acute distress Eyes Conjunctivae: conjunctivae normal Resp Auscultation: clear to auscultation bilaterally Cardio Rate: regular rate Rhythm: regular rhythm GI Inspection: Yes normal to inspection Extrem General: Yes normal to inspection and No edema Results AMB Hemoglobin A1c AMB Hemoglobin A1c 7.6 % Last Edit by VLADIMIR Metcalf on 05/20/25 14:46 Results Reviewed Results Reviewed: Laboratory Last Values Hgb A1c (Clinic) 7.6 % (4.0-6.0) H 05/20/25 14:39 Coding Level of Care Code Est Pt Level 4 (26187) Complex EM visit Add On G2211 Diagnoses Coronary artery disease I25.10 Type 2 diabetes mellitus with hyperglycemia E11.65 Hypothyroid E03.9 Class 1 obesity due to excess calories with serious comorbidity and body mass index (BMI) of 31.0 to 31.9 in adult E66.09; Z68.31 Body mass index: BMI 31.0-31.9 Obesity classification: adult class 1 (BMI 30 - 34.9) Serious obesity comorbidity presence: with serious comorbidity Hyperlipidemia LDL goal <100 E78.5 Atrial fibrillation I48.91 Cardiomyopathy I42.9 Essential hypertension I10 Congestive heart failure I50.9 Tubular adenoma of colon D12.6 Finger pain, right M79.644 Assessment & Plan Assessment & Plan (1) Coronary artery disease: Comment: [place] 12/2024 CABG 12/2024 Dr. Villafana [facility] Code(s): I25.10 - Atherosclerotic heart disease of [place] coronary artery without angina pectoris Category: Medical Plan: Control the cholesterol, weight, blood pressure, diabetes patient on aspirin 81 mg once a day (2) Type 2 diabetes mellitus with hyperglycemia: Comment: Dr. Dennis Code(s): E11.65 - Type 2 diabetes mellitus with hyperglycemia Category: Medical Plan: Decrease the amount of carbohydrate intake, pasta, bread, rice and potatoes are all sugar and that is aside from all the sweet stuff, remember that fruits are good but they are Sweet also. Hemoglobin A1c goal of less than 7.0 patient on Farxiga 10 mg once a day Toujeo insulin 32 units once a day Humalog metformin a 1000 mg twice a day (3) Hypothyroid: Comment: 12/2023 Code(s): E03.9 - Hypothyroidism, unspecified Category: Medical Plan: Continue with thyroid medication (4) Obesity due to excess calories: Code(s): E66.09 - Other obesity due to excess calories Category: Medical Qualifiers: Body mass index: BMI 31.0-31.9 Obesity classification: adult class 1 (BMI 30 - 34.9) Serious obesity comorbidity presence: with serious comorbidity Qualified Code(s): E66.09 - Other obesity due to excess calories; Z68.31 - Body mass index [BMI] 31.0-31.9, adult Plan: Diet and exercise (5) Hyperlipidemia LDL goal <100: Code(s): E78.5 - Hyperlipidemia, unspecified Category: Medical Plan: Avoid fried foods, chicken skin, eggs, butter margarine, pastries and meat. Be it pork or beef they have a lot of cholesterol LDL goal of less than 70 and triglyceride of less than 150. Patient is on atorvastatin 80 mg at bedtime (6) Atrial fibrillation: Comment: limited 12/2023 in hospital, no anticoagulation Code(s): I48.91 - Unspecified atrial fibrillation Category: Medical Plan: Continue to monitor (7) Cardiomyopathy: Code(s): I42.9 - Cardiomyopathy, unspecified Category: Medical Plan: Patient has the ICD continue with Entresto (8) Essential hypertension: Code(s): I10 - Essential (primary) hypertension Category: Medical Plan: Continue with blood pressure medication. Decrease salt intake and exercise continuing with Entresto (9) Congestive heart failure: Comment: reduced EF Code(s): I50.9 - Heart failure, unspecified Category: Medical Plan: Keep monitoring the weight continue with Farxiga (10) Tubular adenoma of colon: Code(s): D12.6 - Benign neoplasm of colon, unspecified Category: Medical Plan: Patient has a scheduled colonoscopy (11) Finger pain, right: Comment: pointer finger Code(s): M79.644 - Pain in right finger(s) Category: Medical Plan History of Present Illness The patient is a 70-year-old male presenting for a follow-up visit. The patient has a history of hypertension, diabetes mellitus, and hypercholesterolemia. He also has congestive heart failure and cardiomyopathy, which have been managed with medications. The patient has coronary artery disease and atrial fibrillation, for which he is on aspirin therapy. He also has chronic kidney disease, which is monitored regularly. In July 2024, the patient underwent L4-5 decompression for lumbar radiculopathy. He was released for full activity post-surgery. An MRI of the cervical spine in June 2024 showed multilevel degenerative disc disease and central canal stenosis at C3-C7 with nerve root encroachment. The patient had a colonoscopy in 2018 revealing a tubular adenoma, and a follow-up colonoscopy is scheduled for July 2025. Recent blood work in December showed mild anemia with a hemoglobin level of 13.7, normal electrolytes, renal function at 1.16, blood sugar at 152, and hemoglobin A1c of 7.1. The BNP was 23, LDL was 54, and B12 was mildly low at 280. Urine test indicated proteinuria. Health Maintenance - Colonoscopy scheduled for July 2025 - Diet and exercise discussed for weight management Social History Review of Systems Physical Exam Results - Labs: Mild anemia with hemoglobin 13.7, normal electrolytes, renal function 1.16, blood sugar 152, hemoglobin A1c 7.1, BNP 23, LDL 54, B12 280, proteinuria in urine test - Imaging: MRI of cervical spine showing multilevel degenerative disc disease and central canal stenosis at C3-C7 with nerve root encroachment Plan The patient is advised to continue with aspirin 81 mg daily for coronary artery disease management. For diabetes management, the patient is on Farxiga 10 mg daily, Toujeo insulin 32 units daily, Humalog, and metformin 1000 mg twice daily, with a goal to maintain hemoglobin A1c below 7.0. The cholesterol management plan includes maintaining LDL below 70 and triglycerides below 150, with atorvastatin 80 mg at bedtime. The patient is also advised to continue with thyroid medication and monitor weight regularly. For blood pressure management, the patient is to continue with Entresto and monitor blood pressure regularly. The patient is scheduled for a colonoscopy in July 2025 as part of preventative care. Patient was informed and verbally consented to the use of an ambient scribe for clinic note documentation during this visit. 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
[2025-05-20 14:20] VITALS: BP 122/52; PULSE 60; O2SAT 98; BMI 29.2
== END 2025-05-20 14:58 | disposition home or self-care (01) ==
LOC: HO.HMCH 14:06
PROVIDERS: PCP Internal Medicine; Visit Provider Internal Medicine
DX: E11.65 Type 2 diabetes mellitus with hyperglycemia (principal); I48.91 Unspecified atrial fibrillation; I42.9 Cardiomyopathy, unspecified; I50.9 Heart failure, unspecified; Z68.31 Body mass index [BMI] 31.0-31.9, adult; I25.10 Atherosclerotic heart disease of native coronary artery without angina pectoris; E03.9 Hypothyroidism, unspecified; E66.09 Other obesity due to excess calories; E78.5 Hyperlipidemia, unspecified; I10 Essential (primary) hypertension; D12.6 Benign neoplasm of colon, unspecified; M79.644 Pain in right finger(s)

== ENCOUNTER 2025-05-20 14:05 | Outpatient (REF) | payer MEDICARE, SELFPAY ==
--- NOTE | ~2025-05-20 | XR_ITS ---
CLINICAL HISTORY: M79.644 - Pain in right finger(s) Radiographs of the right hand, 3 views Comparison: None available Findings: No fracture or dislocation. Mild degenerative change. Soft tissue swelling. Vascular calcifications. Impression: No fracture. This document has been electronically signed by: Pham Carvajal MD on 05/21/2025 17:25:53
== END 2025-05-20 14:06 | disposition home or self-care (01) ==
LOC: HO.XRAY 14:05
PROVIDERS: PCP Internal Medicine; Visit Provider Internal Medicine
DX: M79.644 Pain in right finger(s) (principal); I25.10 Atherosclerotic heart disease of native coronary artery without angina pectoris; E11.65 Type 2 diabetes mellitus with hyperglycemia; E03.9 Hypothyroidism, unspecified; E66.09 Other obesity due to excess calories; E78.5 Hyperlipidemia, unspecified; I48.91 Unspecified atrial fibrillation; I42.9 Cardiomyopathy, unspecified; I11.0 Hypertensive heart disease with heart failure; I50.9 Heart failure, unspecified; D12.6 Benign neoplasm of colon, unspecified; Z79.82 Long term (current) use of aspirin; Z79.4 Long term (current) use of insulin; Z79.84 Long term (current) use of oral hypoglycemic drugs; Z79.890 Hormone replacement therapy; Z79.899 Other long term (current) drug therapy; Z68.29 Body mass index [BMI] 29.0-29.9, adult
CPT/HCPCS: 73130; 83036; 99212

== ENCOUNTER → 2025-05-20 15:07 | Outpatient (BNV) | payer MEDICARE, SELFPAY | PROVIDERS: PCP Internal Medicine; Visit Provider Radiology Diagnostic Radiology | DX: M79.644 Pain in right finger(s) (principal) | CPT/HCPCS: 73130 ==

== ENCOUNTER 2025-05-24 09:17 | Outpatient (AMB) | payer MEDICARE, SELFPAY ==
--- NOTE | 2025-05-24 09:32 | A.OFFVIS_ITS ---
Vital Signs 05/24/25 09:34 Height 5 ft 10 in Weight 208 lb 8.917 oz BMI 29.9 BP 110/62 Blood Pressure Location Rt brachial Position Sitting Pulse 62 Pulse Source Pulse Oximeter Intake Visit Reasons: Type 2 diabetes mellitus with hyperglycemia Intake Note: Patient present today for Type 2 Diabetes Mellitus Last Diabetic eye exam: approx 1 year ago Last Podiatry Visit: Not currently seeing a Head Porter, patient previous Head Porter . Random Glucose: 123 mg/dl HgA1C: 7.6% 05/20/25 Health Commissioner Required: No Accompanied by: Self / Same As Patient Allergies No Known Allergies Allergy (Verified 05/24/25 09:35) Medication List - Last Reconciled 05/24/25 by Tejal Real PA-C amoxicillin 2,000 mg orally 1 hour before the procedure; aspirin 81 mg PO DAILY 90 days atorvastatin 80 mg PO BEDTIME blood sugar diagnostic ([employer] Verio test strips) 4 times a day cholecalciferol (vitamin D3) 50 mcg PO DAILY dapagliflozin propanediol (Farxiga) 10 mg PO DAILY docusate sodium (Colace) 100 mg PO DAILY insulin glargine U-300 conc (Toujeo Max U-300 SoloStar) 32 units (0.1067 mL) subcut DAILY insulin lispro (Humalog KwikPen (U-100) Insulin) 8 - 12 units (0.08 - 0.12 mL) subcut TID lancets As directed levothyroxine 125 mcg PO DAILY metformin 1,000 mg PO BID patiromer calcium sorbitex (Veltassa) 16.8 grams PO DAILY pen needle, diabetic (BD Ultra-Fine Manasa Pen Needle) 1 ea subcut QID sacubitril-valsartan 49-51 mg (Entresto) 1 tab PO BID HPI HPI Type 2 diabetes mellitus with hyperglycemia: Details: Patient is a 70-year-old male with a significant past medical history of chronic kidney disease, hx of pancreatitis. AFib, ICD in place, CAD, CHF, hypothyroidism, hypertension, hyperlipidemia, type 2 diabetes insulin dependent presenting today to establish care for his diabetes. Endo: Dm-he was diagnosed with diabetes. last A1c was 7.6. He is currently managed with Farxiga 10 mg daily, Toujeo 32 units daily, Humalog sliding scale (8-12 units with meals), metformin 1000 mg twice a day. -he has only been using Humalog with dinner. did not car pick up driver mounjaro due to hx of pancreatitis. He states that he pancreatitis in 2001 and they do not know exactly why he had pancreatitis. CGM-does not currently have 1. States that he used 1 many years ago and it was helpful. He checks his blood sugars regularly up to 4 times a day and they are usually greater than 150-200. He tries to exercise regularly. He remains very active [place]. Hypoglycemia-states that he has candy at home to treat if needed but has not had low blood sugars. Hyperglycemia-polyuria or polydipsia. CV: Blood pressure today in the office is 110/62. He is on Entresto. Cholesterol is managed with atorvastatin 80 mg. [facility] Medical History (Updated 05/24/25 @ 10:04 by Tejal Real PA-C) Abnormal echocardiogram Pre-procedural cardiovascular examination Obesity due to excess calories Pancreatitis Vitamin D deficiency Type 2 diabetes mellitus with diabetic polyneuropathy Essential hypertension Hyperlipidemia LDL goal <100 Surgical History History of permanent cardiac pacemaker placement Hx of bilateral cataract extraction Hx of eye surgery History of neck surgery Family History Father Diabetes Mother No problems noted. 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 [employer] Cognitive needs: No Hearing needs: No Vision needs: No Physical Exam Const Orientation/consciousness: patient oriented x3 HEENT Ears: hearing grossly normal bilaterally Neck Thyroid: Thyroid normal Lymphatic: no lymphadenopathy noted Resp Auscultation: clear to auscultation bilaterally Cardio Rate: regular rate Rhythm: regular rhythm Heart sounds: S1 normal heart sound present and S2 normal heart sound present Skin General skin exam: no rashes or lesions noted Neuro General: patient oriented x3, gait normal and no focal motor deficits Results Reviewed Results Reviewed: Laboratory Tests 01/13/25 01/13/25 05/20/25 06:30 06:36 14:39 Creatinine 1.16 Estimated GFR > 60 Hgb A1c (Clinic) 7.6 H AST 33 ALT 42 H Triglycerides 117 Cholesterol 105 LDL Cholesterol, Calc 54 HDL Cholesterol 28 L Urine Creatinine 57.97 Urine Microalbumin 31.0 Microalb/Creat Ratio 53.4 H Assessment & Plan Assessment & Plan (1) Type 2 diabetes mellitus with diabetic polyneuropathy: Code(s): E11.42 - Type 2 diabetes mellitus with diabetic polyneuropathy Category: Medical Qualifiers: 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 We discussed the pathophysiology of diabetes, the differences between type 1 and type 2 diabetes, signs and symptoms of hyper and hypoglycemia and complications associated with diabetes including but not limited to increased risk of kidney disease, blindness, stroke, heart attack etc.. Reviewed how to treat low blood sugars Continue Shiva Encouraged him to follow a sliding scale for the Humalog and to inject with meals as indicated on the sliding scale. Continue metformin Continue Monica Advised to not take the Mounjaro due to history of pancreatitis I downloaded the [employer] 3 tanner on his phone today with him. I gave him 2 sensors in the office and put 1 on his arm today for him. We reviewed diet and lifestyle modifications. Labs ordered today. We will follow up pending test results I will have him do a short term follow up in a few weeks to reassess him and better adjust the insulin based off of his CGM. (2) Essential hypertension: Code(s): I10 - Essential (primary) hypertension Category: Medical Plan: WNL. Continue current regimen Orders: Orders C Peptide Today E11.42 - Type 2 diabetes mellitus with diabetic polyneuropathy Glutamic acid decarboxylase Ab Today E11.42 - Type 2 diabetes mellitus with diabetic polyneuropathy Islet Cell Antibody Scrn/Titer Today E11.42 - Type 2 diabetes mellitus with diabetic polyneuropathy Medications: New blood-glucose sensor (ProTendersyle Niranjan 3 Plus Sensor device) Use daily As directed to monitor glucose 6 ea 3RF E08.29 - Diabetes mellitus due to underlying condition with other diabetic kidney complication, R80.9 - Proteinuria, unspecified, Z79.4 - group home (current) use of insulin Discontinued tirzepatide (Mounjaro) for 4 weeks Discontinued Reason: Doctor's Order 2.5 mg (0.5 mL) subcut QWEEK 2 mL 2RF E11.65 - Type 2 diabetes mellitus with hyperglycemia Coding Level of Care Code New Pt Level 5 (23758) Complex EM visit Add On G2211 Diagnoses Type 2 diabetes mellitus with diabetic polyneuropathy, without long-term current use of insulin E11.42 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
[2025-05-24 09:34] VITALS: BP 110/62; PULSE 62; BMI 29.9
[2025-05-24 09:44] LABS: Glucose, Whole Blood 123 mg/dL (60-115)
--- OUTSIDE RECORDS SUMMARY | 2025-05-24 10:01 | XMS_ITS | Patient Health Record ---
Author Organization [facility] Address [address] [place] [address] Care Team Providers Care Cloth Printer Name Role Phone Lane Red MD Primary Care Provider Lalit Foreman [phone] Allergies No Known Allergies Reason For Referral No Information Medications Medication SIG (Take, Route, Frequency, Duration) Notes Start Date End Date Status Farxiga 10 MG Oral for 30 Days Active Levothyroxine Sodium 125 MCG Oral for 90 Days Active Carvedilol 6.25 MG TAKE 1 TABLET BY YULI TH TWICE A DAY Oral for 90 Days Active Entresto 49-51 MG Oral for 30 Days Active Toujeo Max SoloStar 300 DIRECTED ORALLY AT HS Active Vitamin D3 Active HumaLOG 100 DIRECTED DIREC MARK DIRECTED Active Atorvastatin Calcium 80 MG Oral for 90 Days Active Aspirin 81 Active Immunizations Vaccine Route Administration Date Status [...] Negative Section Notes: Nonsmoker; no sig alcohol Nonsmoker; no sig alcohol Problems Problem Type SNOMED Code ICD Code Onset Dates Problem Status W/U Status Risk Notes Problem [id number] Encounter for screening for malignant neoplasm of colon (Z12.11) Active confirmed Problem 753645512615365 Preprocedural examination (Z01.818) Active confirmed Problem 584943581 Hx of adenomatou s colonic polyps (Z86.010) Active confirmed Problem 97846711012230 History of pancreatitis (Z87.19) Active confirmed Vital Signs Blood pressure diastolic 77 mm Hg 05/13/2025 Height 70 in 05/13/2025 Blood pressure systolic 111 mm Hg 05/13/2025 Weight 209 lbs 05/13/2025 BMI 29.99 kg/m2 05/13/2025 Procedures Procedure Date Ordered Date Performed Result Body Sit e COLONOSCOPY 05/13/2025 N/A Encounters Encounter Location Date Provider Diagnosis [facility] [address] [place] [address] 05/13/2025 Lalit Hand Encounter for screen ing for malignant neoplasm of colon Z12.11 ; Preprocedural examination Z01.818 and Hx of adenomatous colonic polyps Z86.010 Assessments Encounter Date Diagnosis (ICD Code) Assessment [...] cardiology clearance note from Dr. Acosta at [facility]. Javi was comfortable with this plan. Thank [...] cardiology clearance note from Dr. Acosta at [facility]. Javi was comfortable with this plan. Thank [...] cardiology clearance note from Dr. Acosta at [facility]. Javi was comfortable with this plan. Thank you again for allowing me to participate in Javi's care. I shall continue to keep you advised of his progress. Plan Of Treatment Pending Test Test Name Order Date COLONOSCOPY 05/13/2025 Future Test Test Name Order Date COLONOSCOPY 11/18/2018 Next Appt Details Provider Name:Lalit Hand , 08/09/2025 11:30:00 AM, [address] [place] [address], [phone], Insurance Providers Payer Name Payer Address Payer Phone Subscriber Number Group Number Insured Name Patient Relationship to Insured Coverage Start Date Coverage End Date [facility] O [address] [address] [phone] [id number] MARINEVERNONJAVI Self - patient is the insured 4 Medical (General) History Medical History History ICD Code Hx of pancreatitis--2001--? etiology---may have been from elevated TG's of > 800 at that time--no alcohol nor associated gallbladder disease--no problems since--- he was treated with Lopid at that time. IDDM HTN Denies CVA,Lung disease,renal disease Colonoscopy in 2007--small tubular adeno ma removed Hypertriglyceridemia VT in 2023 with CHF with sub sequent 3 V CABG, Reports a cardiac EF of 22%. Transient Afib. Sees Dr. Acosta from [facility] Pacemaker 2024 Screening colonoscopy in 2018 with remov al of small tubular adenomas Surgical History Surgery Date(Month/Year) left knee replacement back surgery pinched nerve pacemaker 2024 triple bypass 2023 Eye at age 7 Neck
--- OUTSIDE RECORDS SUMMARY | 2025-05-24 10:01 | XMS_ITS | Clinical Summary ---
Author Organization [facility] Address [address] [address] Phone Care Team Providers Care Extension Work Director Name Role Phone Chaz Leahy MD Primary Care Provider +1- [phone] Allergies Active Allergy Reactions Criticality Noted Date [...] REPLACEMENT MEDICARE PREFERRED PPO REPLACEMENT Care Teams Extension Work Director Relationship Specialty Start Date End Date Chaz Leahy MD [address] [place] [id number] PCP - General Internal Medicine 10/22/23 Additional Source Comments The information contained in this document represents components of the legal health record. It is not the complete legal health record.[facility]
== END 2025-05-24 10:10 | disposition home or self-care (01) ==
LOC: HO.ENCR 09:18
PROVIDERS: PCP Internal Medicine; Visit Provider Physician Assistant
DX: E11.42 Type 2 diabetes mellitus with diabetic polyneuropathy (principal); I10 Essential (primary) hypertension

== ENCOUNTER → 2025-05-24 09:17 | Outpatient (BNVA) | payer MEDICARE, SELFPAY | PROVIDERS: PCP Internal Medicine; Visit Provider Physician Assistant | DX: E11.42 Type 2 diabetes mellitus with diabetic polyneuropathy (principal); E11.22 Type 2 diabetes mellitus with diabetic chronic kidney disease; I13.0 Hypertensive heart and chronic kidney disease with heart failure and stage 1 through stage 4 chronic kidney disease, or unspecified chronic kidney disease; I50.9 Heart failure, unspecified; N18.9 Chronic kidney disease, unspecified; E78.5 Hyperlipidemia, unspecified; I25.10 Atherosclerotic heart disease of native coronary artery without angina pectoris; E03.9 Hypothyroidism, unspecified; Z79.4 Long term (current) use of insulin; Z95.810 Presence of automatic (implantable) cardiac defibrillator | CPT/HCPCS: 82947; 99202 ==

== ENCOUNTER 2025-05-24 10:17 | Outpatient (REF) | payer MEDICARE, SELFPAY | END 2025-05-24 10:18 | disposition home or self-care (01) | LOC: HO.10HDL 10:17 | PROVIDERS: Visit Provider Physician Assistant | DX: E11.42 Type 2 diabetes mellitus with diabetic polyneuropathy (principal) | CPT/HCPCS: 36415; 84681; 86341 ==

== ENCOUNTER → 2025-06-14 13:41 | Outpatient (REF) | payer MEDICARE, SELFPAY ==
--- NOTE | 2025-06-14 13:43 | CA_ITS ---
Transthoracic Echocardiogram Patient (Last, First, Middle): Javi Covarrubias P Gender: M Date of : 1955 Age: 70 Procedure Date: 06/14/2025 Procedure Type: Transthoracic Echocardiogram Location: OP Height: 177.8 cm Weight: 92.99 kg BSA: 2.11 m2 Heart Rate: 50 bpm BP: 116 / 64 mmHg Cad Application Support Specialist: SB Referring MD: Lane Red MD Symptoms: I48.91 - Unspecified atrial fibrillation Study Quality: Adequate w contrast ECG Rhythm: Bradycardia Conclusions: - The left ventricular systolic function is severely decreased. The visually estimated ejection fraction is between 25-30%. - Evidence suggests grade II (moderate) diastolic dysfunction. - Wall motion abnormalities related to underlying coronary disease. - No obvious valvular pathology seen on this study. Findings Procedure Information Contrast agent, definity, is being given per protocol without apparent complications. The quality of the study was technically difficult. The study quality is limited by lung artifact. Left Ventricle Moderately increased left ventricular cavity size. There is normal left ventricular wall thickness. The left ventricular systolic function is severely decreased. The visually estimated ejection fraction is between 25 30%. There is evidence of regional wall motion abnormalities. Evidence suggests grade II (moderate) diastolic dysfunction. Wall Motion Rest Echo Findings The mid anterior, mid inferior, and mid anterolateral segments are hypokinetic. The inferolateral wall is akinetic. Right Ventricle The right ventricle was not well visualized. There is moderately decreased right ventricular systolic function. There is an ICD wire seen in the right ventricle. Atria Mild biatrial enlargement. Aortic Valve There is a normal trileaflet aortic valve. There is mild calcification of the aortic valve. There is no aortic valve stenosis. There is no aortic valve regurgitation. Mitral Valve There is mild mitral annular calcification. There is trace mitral valve regurgitation. There is no mitral valve stenosis. Pulmonic Valve The pulmonic valve is likely normal. Tricuspid Valve There is mild tricuspid valve regurgitation. There is no evidence of pulmonary hypertension. Great Vessels The asc aorta is normal in size. Large plaque is seen in the sinuses of Valsalva. Venous The inferior vena cava is normal in size and collapses greater than 50% with inspiration. Pericardium/Pleural There is no evidence of pericardial effusion. Prior Study Comparison Changes noted compared to prior study dated: 12/23/2023. LVEF marginally higher than prior study. Recommendations, Care & Conclusions No obvious valvular pathology seen on this study. Measurements 2D Linear Measurements IVSd: 0.75 0.6-0.9/0.6-1.0 cm LVIDd: 6.47 3.9-5.3/4.2-5.9 cm LVIDd Index: 3.07 2.4-3.2/2.2-3.1 cm/m2 LVIDs: 5.18 2.0-3.6 cm LVPWd: 0.79 0.7-1.1 cm LA Diam: 4.90 2.7-3.8/3.0-4.0 cm LAIDs Index: 2.32 1.5-2.3 cm/m2 LV Mass: 254.01 67-162/88-224 g LV Mass Index: 120.38 43-95/49-115 g/m2 LVOT Diam: 2.20 3.0+(-)1.3 cm 2D Systolic Function EF 4C: 45.20 >55% EF 2C: 43.50 >55% EF BiP: 44.30 >55% Mitral Valve MV Pk E: 0.80 MV PK A: 0.54 MV Decel Time: 187.00 E/A: 1.50 E'Lateral: 5.43 E'Medial: 3.50 E/E' Med: 22.80 E/E' Lat: 14.70 PHT: 55.00 MVA PHT: 4.00 Decel [place]: 4.26 Aortic Valve AoV Pk Get: 1.65 AoV Mn Get: 1.19 AoV VTI: 0.37 AoV Pk Grad: 11.00 Aov Mn Grad: 6.00 ANNALISE Cont.VTI: 1.97 LVOT LVOT Pk Get: 0.88 LVOT Mn Get: 0.62 LVOT VTI: 0.19 LVOT Pk Grad: 3.00 LVOT Mn Grad: 2.00 LVOT Diam: 2.20 LVOT Area: 3.80 Diastolic Function MV Pk E: 0.80 MV Pk A: 0.54 E/A: 1.50 E'Medial: 3.50 E/E' Med: 22.80 E' Laterial: 5.43 E/E' Lat: 14.70 Right Ventricle TAPSE (mm): 9.70 TVS' Get: 6.38 Tricuspid Valve TR Pk Get: 2.70 TR Pk Grad: 29.00 RA Press: 3.00 RVSP: 32.00 Great Vessels Aorta Sinus of Valsalva: 3.40 2.0-3.5 cm Ao Asc: 3.40 2.1-3.4 cm Pulmonary Veins Pulm Vein S/D 0.80 Pulmonary Valve PV Pk Get: 0.73 Peak PV Grad: 2.00 Updated in Other Vendor System with Status of Final Laron Cardona MD electronically signed on 06/15/2025 11:22:42 AM with status of Final
--- OUTSIDE RECORDS SUMMARY | 2025-06-14 18:57 | XMS_ITS | Clinical Summary ---
Author Organization [facility] Address [address] [address] Phone Care Team Providers Care Vacuum Plastic Forming Machine Operator Name Role Phone Chaz Leahy MD Primary Care Provider +1- [phone] Allergies Active Allergy Reactions Criticality Noted Date [...] - Risk 60-74 years 1-dose series) 2017 INFLUENZA VACCINE (#1) 2025 3, 07/04/2022, 07/17/2021, Additional history exists COVID-19 VACCINE (2024- season) 2025 07/19/2023, 07/04/2022, 07/17/2021, Additional history exists Adult [...] PPO REPLACEMENT [employer] PREFERRED PPO REPLACEMENT Care Teams Vacuum Plastic Forming Machine Operator Relationship Specialty Start Date End Date Chaz Leahy MD [address] [place] [phone] PCP - General Internal Medicine 10/22/23 Additional Source Comments The information contained in this document represents components of the legal health record. It is not the complete legal health record.[facility]
--- OUTSIDE RECORDS SUMMARY | 2025-06-14 18:57 | XMS_ITS | Patient Health Record ---
Author Organization [facility] Address [address] [place] [address] Care Team Providers Care Outdoor Adventure Leader Name Role Phone Lane Red MD Primary Care Provider Lalit Foreman [phone] Allergies No Known Allergies Reason For Referral [...] Problem Status W/U Status Risk Notes Problem 656871526 Encounter for screening for malignant neoplasm of colon (Z12.11) Active confirmed Problem 926410042698733 Preprocedural examination (Z01.818) Active confirmed Problem 218399030 Hx of adenomatou s colonic polyps (Z86.010) Active confirmed Problem 49439905505638 History of pancreatitis (Z87.19) Active confirmed Vital Signs Blood pressure diastolic 77 mm Hg 05/13/2025 Height 70 in 05/13/2025 Blood pressure systolic 111 mm Hg 05/13/2025 Weight 209 lbs 05/13/2025 BMI 29.99 kg/m2 05/13/2025 Procedures Procedure Date Ordered Date Performed Result Body Sit e COLONOSCOPY 05/13/2025 N/A Encounters Encounter Location Date Provider Diagnosis [facility] [address] [place] [address] 05/13/2025 Lalit Hand Encounter for screen ing [...] cardiology clearance note from Dr. Acosta at [facility]. Javi was comfortable with this plan. [...] cardiology clearance note from Dr. Acosta at [facility]. Javi was comfortable with this plan. [...] cardiology clearance note from Dr. Acosta at [facility]. Javi was comfortable with this plan. Thank you again for allowing me to participate in Javi's care. I shall continue to keep you advised of his progress. Plan Of Treatment Pending Test Test Name Order Date COLONOSCOPY 05/13/2025 Future Test Test Name Order Date COLONOSCOPY 11/18/2018 Next Appt Details Provider Name:Lalit Hand , 08/09/2025 11:30:00 AM, [address] [place] [address], [id number], Insurance Providers Payer Name Payer Address Payer Phone Subscriber Number Group Number Insured Name Patient Relationship to Insured Coverage Start Date Coverage End Date [facility] O [address] [address] [id number] MARINEVERNONJAVI Self - patient is the insured 4 Medical (General) History Medical History History ICD Code Hx of pancreatitis--2001--? etiology---may have been from elevated TG's of > 800 at that time--no alcohol nor associated gallbladder disease--no problems since--- he was treated with Lopid at that time. IDDM HTN Denies CVA,Lung disease,renal disease Colonoscopy in 2007--small tubular adeno ma removed Hypertriglyceridemia OR in 2023 with CHF with sub sequent 3 V CABG, Reports a cardiac EF of 22%. Transient Afib. Sees Dr. Acosta from [facility] Pacemaker 2024 Screening colonoscopy in 2018 with remov al of small tubular adenomas Surgical History Surgery Date(Month/Year) left knee replacement back surgery pinched nerve pacemaker 2024 triple bypass 2023 Eye at age 7 Neck
== END ==
LOC: HO.CARD 13:41
PROVIDERS: PCP Internal Medicine; Visit Provider Internal Medicine
DX: I48.91 Unspecified atrial fibrillation (principal)
CPT/HCPCS: 93306; Q9957

== ENCOUNTER → 2025-06-14 13:43 | Outpatient (BNV) | payer MEDICARE, SELFPAY | PROVIDERS: PCP Internal Medicine; Visit Provider Internal Medicine | DX: I48.91 Unspecified atrial fibrillation (principal); I51.89 Other ill-defined heart diseases; I51.7 Cardiomegaly; I36.1 Nonrheumatic tricuspid (valve) insufficiency | CPT/HCPCS: 93306 ==

== ENCOUNTER 2025-06-18 11:12 | Outpatient (AMB) | payer MEDICARE, SELFPAY ==
--- NOTE | 2025-06-18 11:15 | MHC.OFFVIS ---
Vital Signs 06/18/25 11:16 Height 5 ft 10 in Weight 210 lb 1.608 oz BMI 30.1 BP 102/52 L Blood Pressure Location Lt brachial Position Sitting Pulse 70 Pulse Source Pulse Oximeter Pulse Oximetry (%) 99 Oxygen Delivery Method Room Air Intake Visit Reasons: T2DM Intake Note: Patient present today for Type 2 Diabetes Mellitus Last Diabetic eye exam: Last exam was in 2023 and has upcoming appt Last Podiatry Visit: Doesn't have one at this time Random Glucose: 152 mg/dl HgA1C: 7.6% 05/20/25 Scrap Iron Cutter Required: No Accompanied by: Self / Same As Patient Allergies No Known Allergies Allergy (Verified 06/18/25 11:20) HPI HPI T2DM: Details: Patient is a 70-year-old male with a significant past medical history of chronic kidney disease, hx of pancreatitis. AFib, ICD in place, CAD, CHF, hypothyroidism, hypertension, hyperlipidemia, type 2 diabetes insulin dependent presenting today to establish care for his diabetes. Endo: Dm-he was diagnosed with diabetes. last A1c was 7.6. He is currently managed with Farxiga 10 mg daily, Toujeo 32 units daily, Humalog 5 units with dinner, metformin 1000 mg twice a day. did not fish bait picker mounjaro due to hx of pancreatitis. He states that he pancreatitis in 2001 and they do not know exactly why he had pancreatitis. CGM-95% usage, G mi 6.5%, average glucose 134, very hyperglycemic 1%, hyperglycemic 8%, in range 90%, hypoglycemic 1%. The sensor does record low blood sugars overnight but he states that these are inaccurate. He states they are not actually low. He did have 1 actual low blood sugar in the 50s the other day when he was running. He states that he did not eat much and did not have many carbs with his lunch in the in a few hours later went for a run. Treats low blood sugars with glucose tabs. He tries to exercise regularly. He remains very active [place]. Hypoglycemia-states that he has candy at home to treat if needed but has not had low blood sugars. Hyperglycemia-polyuria or polydipsia. CV: Blood pressure today in the office is 102/52. He is on Entresto. Cholesterol is managed with atorvastatin 80 mg. [facility] Medical History (Updated 05/24/25 @ 10:04 by Teajl Real PA-C) Abnormal echocardiogram Pre-procedural cardiovascular examination Obesity due to excess calories Pancreatitis Vitamin D deficiency Type 2 diabetes mellitus with diabetic polyneuropathy Essential hypertension Hyperlipidemia LDL goal <100 Surgical History History of permanent cardiac pacemaker placement Hx of bilateral cataract extraction Hx of eye surgery History of neck surgery Family History Father Diabetes Mother No problems noted. 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 [employer] Cognitive needs: No Hearing needs: No Vision needs: No Physical Exam Vital Signs: Last Vital Signs Pulse 70 06/18/25 11:16 BP 102/52 L 06/18/25 11:16 Pulse Ox 99 06/18/25 11:16 Oxygen Delivery Method Room Air 06/18/25 11:16 BMI result Body Mass Index 30.1 Const Orientation/consciousness: patient oriented x3 HEENT Ears: hearing grossly normal bilaterally Neck Thyroid: Thyroid normal Lymphatic: no lymphadenopathy noted Resp Auscultation: clear to auscultation bilaterally Cardio Rate: regular rate Rhythm: regular rhythm Heart sounds: S1 normal heart sound present and S2 normal heart sound present Skin General skin exam: no rashes or lesions noted Neuro General: patient oriented x3, gait normal and no focal motor deficits Assessment & Plan Assessment & Plan (1) Type 2 diabetes mellitus with diabetic polyneuropathy: Code(s): E11.42 - Type 2 diabetes mellitus with diabetic polyneuropathy Category: Medical Qualifiers: Diabetes mellitus assisted sales representative insulin use: without assisted sales representative use Qualified Code(s): E11.42 - Type 2 diabetes mellitus with diabetic polyneuropathy Plan: Reviewed how to treat low blood sugars He will continue his current regimen as he is doing well with this (2) Essential hypertension: Code(s): I10 - Essential (primary) hypertension Category: Medical Plan: WNL. Continue current regimen Coding Level of Care Code Est Pt Level 4 (03472) Complex EM visit Add On G2211 Diagnoses Type 2 diabetes mellitus with diabetic polyneuropathy, without long-term current use of insulin E11.42 Diabetes mellitus assisted sales representative insulin use: without jail use Essential hypertension I10
[2025-06-18 11:16] VITALS: BP 102/52; PULSE 70; O2SAT 99; BMI 30.1
[2025-06-18 11:37] LABS: Glucose, Whole Blood 152 mg/dL (60-115)
--- OUTSIDE RECORDS SUMMARY | 2025-06-18 11:56 | XMS_ITS | Clinical Summary ---
Author Organization [facility] Address [address] [address] Phone Care Team Providers Care Emblem Fuser Tender Name Role Phone Chaz Leahy MD Primary Care Provider +1- [phone] Allergies Active Allergy Reactions Criticality Noted Date [...] [employer] PREFERRED PPO REPLACEMENT Care Teams Emblem Fuser Tender Relationship Specialty Start Date End Date Chaz Leahy MD [address] [place] [id number] PCP - General Internal Medicine 10/22/23 Additional Source Comments The information contained in this document represents components of the legal health record. It is not the complete legal health record.[facility]
== END 2025-06-18 11:42 | disposition home or self-care (01) ==
LOC: HO.ENCR 11:13
PROVIDERS: PCP Internal Medicine; Visit Provider Physician Assistant
DX: E11.42 Type 2 diabetes mellitus with diabetic polyneuropathy (principal); I10 Essential (primary) hypertension

== ENCOUNTER → 2025-06-18 11:12 | Outpatient (BNVA) | payer MEDICARE, SELFPAY | PROVIDERS: PCP Internal Medicine; Visit Provider Physician Assistant | DX: E11.42 Type 2 diabetes mellitus with diabetic polyneuropathy (principal); E11.22 Type 2 diabetes mellitus with diabetic chronic kidney disease; N18.9 Chronic kidney disease, unspecified; I12.9 Hypertensive chronic kidney disease with stage 1 through stage 4 chronic kidney disease, or unspecified chronic kidney disease; E78.5 Hyperlipidemia, unspecified; Z79.4 Long term (current) use of insulin | CPT/HCPCS: 82947; 99212 ==

== ENCOUNTER 2025-08-09 09:18 | Day surgery (SDC) | payer MEDICARE, SELFPAY ==
--- NOTE | 2025-08-04 14:04 | HO.ANESPROP2 ---
Documented by User: Louisa Horton NP 08/04/25 14:10 HPI - Anesthesia Eval Consult details Narrative: 70yo M for Colonoscopy Cardiac opitmized. Follows [facility] cardiology for CAD s/p CABG x 3 12/2023, ischemic CMP (LVEF 25-30 05/2025 echo), ICD in situ, afib x 1 post CABG resolved with cardioversion. Per cardiology office visit 05/2025 pt feels well playing uMentioned ball and walking 3-4miles daily. Anesthesia Pre-Procedure Meds Is the patient on any of the following meds?: SGLT2 Inhib PMFSH Active Problems Active Problems: All Active Problems Hx of pancreatitis (Acute) Finger pain, right (Acute) ICD (implantable cardioverter-defibrillator) in place (Acute) Tubular adenoma of colon (Acute) Annual physical exam (Acute) LFT elevation (Acute) History of lumbar surgery (Acute) Neuropathy, peripheral (Acute) Hypothyroid (Acute) CKD (chronic kidney disease) (Acute) Atrial fibrillation (Acute) History of left knee replacement (Acute) Coronary artery disease (Acute) Overweight (BMI 25.0-29.9) (Acute) Type 2 diabetes mellitus with hyperglycemia (Acute) Cardiomyopathy (Acute) Abnormal echocardiogram (Acute) Pre-procedural cardiovascular examination (Acute) Congestive heart failure (Acute) Effusion, left knee (Acute) Internal derangement of left knee (Acute) Osteoarthritis of left knee (Acute) Painful arc syndrome of left shoulder (Acute) Lesion of skin of nose (Acute) Type 2 diabetes mellitus with diabetic polyneuropathy (Acute) Essential hypertension (Acute) Hyperlipidemia LDL goal <100 (Acute) Obesity due to excess calories (Acute) Past Medical History Medical History Chronic renal insufficiency Arthritis Obesity due to excess calories Pancreatitis Vitamin D deficiency Type 2 diabetes mellitus with diabetic polyneuropathy Essential hypertension Hyperlipidemia LDL goal <100 Family History Family History Father Diabetes Mother No problems noted. Surgical History Surgical History Hx of CABG History of implantable cardioverter-defibrillator (ICD) insertion Hx of total knee replacement H/O colonoscopy History of permanent cardiac pacemaker placement Hx of bilateral cataract extraction Hx of eye surgery History of neck surgery Social History Social History Household Members: Spouse Housing: House Are you a primary emergency care attendant to a significant other at home: No Do you presently have visiting nurse or other home services: No Alcohol intake: current Alcohol intake frequency: does not drink Comment: stopped after cardiac surgery Patient Tobacco Use Status: Never used Tobacco e-Cigarette/Vaping Use: Never Used Second Hand Smoke Exposure: No Use of substances other than those prescribed or required for medical reasons: No Have you been hit, kicked, punched, or otherwise hurt by someone within the past year? 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 [email or web address] Cognitive needs: No Hearing needs: No Vision needs: No Meds Allergies Allergy/AdvReac Type Severity Reaction Status Date / Time No Known Allergies Allergy Verified 06/18/25 11:20 Home Medications ?Medication ?Instructions ?Recorded ?Confirmed ?Last Taken ?Type lancets 33 gauge #100 ea 08/04/20 08/09/25 Unknown History atorvastatin 80 mg tablet 80 mg PO BEDTIME 10/19/24 08/09/25 Unknown History levothyroxine 125 mcg tablet 125 mcg PO DAILY 10/19/24 08/09/25 Unknown History patiromer calcium sorbitex 16.8 16.8 g PO DAILY 10/19/24 08/09/25 Unknown History gram oral powder packet (Veltassa) sacubitril 49 mg-valsartan 51 mg 1 tab PO BID 10/19/24 08/09/25 Unknown History tablet (Entresto) docusate sodium 100 mg capsule 100 mg PO DAILY 01/19/25 08/09/25 Unknown History (Colace) carvedilol 6.25 mg tablet 6.25 mg PO BID 06/18/25 08/09/25 08/09/25 History Exam Narrative Narrative: ECHO 05/2025 Conclusions: - The left ventricular systolic function is severely decreased. The visually estimated ejection fraction is between 25-30%. - Evidence suggests grade II (moderate) diastolic dysfunction. - Wall motion abnormalities related to underlying coronary disease. - No obvious valvular pathology seen on this study. ECG 12-Lead ? 15:31:37 Ventricular Rate: 66 BPM Atrial Rate: 66 BPM P-R Interval: 214 ms QRS Duration: 90 ms Q-T Interval: 424 ms QTC Calculation(Bazett): 444 ms P [place]: 97 degrees R [place]: 136 degrees T [place]: -4 degrees Sinus rhythm with 1st degree A-V block Right axis deviation Pulmonary disease pattern Possible Right ventricular hypertrophy Septal infarct (cited on or before 17-Dec-2024) Abnormal ECG When compared with ECG of 17-Dec-2024 11:47, Premature ventricular complexes are no longer Present Nonspecific T wave abnormality now evident in Inferior leads Confirmed Dual-chamber ICD, implanted 11/2024 -Last device interrogation 05/10/2025: RV pacing 58%, no events? Assessment and Plan Assessment Anesthesia Assessment: Chart Reviewed Documented by User: Varun Villeda MD 08/09/25 11:09 [facility] Past Medical History Medical History Chronic renal insufficiency Arthritis Obesity due to excess calories Pancreatitis Vitamin D deficiency Type 2 diabetes mellitus with diabetic polyneuropathy Essential hypertension Hyperlipidemia LDL goal <100 Functional capacity: independent ambulation Family History Family History Father Diabetes Mother No problems noted. Family history of problems with anesthesia: No Surgical History Surgical History Hx of CABG History of implantable cardioverter-defibrillator (ICD) insertion Hx of total knee replacement H/O colonoscopy History of permanent cardiac pacemaker placement Hx of bilateral cataract extraction Hx of eye surgery History of neck surgery History of Problems with Anesthesia: No Social History Social History Household Members: Spouse Housing: House Are you a primary emergency care attendant to a significant other at home: No Do you presently have visiting nurse or other home services: No Alcohol intake: current Alcohol intake frequency: does not drink Comment: stopped after cardiac surgery Patient Tobacco Use Status: Never used Tobacco e-Cigarette/Vaping Use: Never Used Second Hand Smoke Exposure: No Use of substances other than those prescribed or required for medical reasons: No Have you been hit, kicked, punched, or otherwise hurt by someone within the past year? 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 [email or web address] Cognitive needs: No Hearing needs: No Vision needs: No Meds Allergies Allergy/AdvReac Type Severity Reaction Status Date / Time No Known Allergies Allergy Verified 06/18/25 11:20 Home Medications ?Medication ?Instructions ?Recorded ?Confirmed ?Last Taken ?Type lancets 33 gauge #100 ea 08/04/20 08/09/25 Unknown History atorvastatin 80 mg tablet 80 mg PO BEDTIME 10/19/24 08/09/25 Unknown History levothyroxine 125 mcg tablet 125 mcg PO DAILY 10/19/24 08/09/25 Unknown History patiromer calcium sorbitex 16.8 16.8 g PO DAILY 10/19/24 08/09/25 Unknown History gram oral powder packet (Veltassa) sacubitril 49 mg-valsartan 51 mg 1 tab PO BID 10/19/24 08/09/25 Unknown History tablet (Entresto) docusate sodium 100 mg capsule 100 mg PO DAILY 01/19/25 08/09/25 Unknown History (Colace) carvedilol 6.25 mg tablet 6.25 mg PO BID 06/18/25 08/09/25 08/09/25 History Exam Exam Date and Time: 08/09/25 Airway TM Dist: >3cm Heart: normal with aicd Lungs: normal Other: normal Assessment and Plan Final Anesthetic Review Family History of Problems with Anesthesia: No History of Problems with Anesthesia: No NPO: Yes ASA Class: III Final Preanesthetic Review: No Changes in Pt Med Stat, Meds/Allgs Chart Reviewed, Consent Obtained/Reviewed and Anes Risks/Benef Reviewed Patient Risk: Intermediate Procedure Risk: Low Anesthetic Plan Anesthetic Plan: MAC: Disposition: Standard PACU
[2025-08-09 09:46] VITALS: BP 118/63; PULSE 60; RESP 16; TEMP 36.8; O2SAT 98
[2025-08-09] MEDS: Lactated Ringers 1,000 ML 50 ML IVCONT (09:47)
[2025-08-09 12:09] VITALS: BP 98/54; PULSE 60; RESP 19; TEMP 36.1; O2SAT 97
--- NOTE | 2025-08-09 12:12 | PM.OP ---
Brief Operative Note Date of Service: 08/09/25 Pre-op diagnosis: Screening Post-op diagnosis: other (Colon polyps) Procedure: Colonoscopy to the cecum with cold snare polypectomy x 2 Surgeon: Lalit Hand MD Anesthesia: MAC Was an Corporate Trainer used for this Procedure?: No Estimated blood loss (mL): 2.0 Pathology: other (A. Polyp at 60cm B. Polyp at 20cm) Condition: stable Disposition: PACU
[2025-08-09 12:22] VITALS: BP 100/55; PULSE 60; RESP 15; TEMP 36.1; O2SAT 99
--- NOTE | 2025-08-09 23:25 | OP_ITS ---
DATE OF SERVICE: 08/09/2025 SURGEON: Lalit Hand MD INDICATIONS: The patient presents for evaluation of personal history of tubular adenoma of the colon and colorectal cancer screening. Full consent has been obtained from him for this, including risks of bleeding and perforation. PREOPERATIVE DIAGNOSIS: POSTOPERATIVE DIAGNOSIS: PROCEDURE PERFORMED: Colonoscopy to the cecum with cold snare polypectomy. ESTIMATED BLOOD LOSS: COMPLICATIONS: ANESTHESIA: Prep medication used, monitored anesthesia care. ASSISTANTS: SPECIMENS: PREOPERATIVE DIAGNOSES: Colorectal cancer screening and personal history of tubular adenoma of the colon. POSTOPERATIVE DIAGNOSES: Colorectal cancer screening and personal history of tubular adenoma of the colon, colon polyps, diverticulosis, and internal hemorrhoids. DESCRIPTION OF PROCEDURE: The patient was placed in left lateral decubitus position. The digital rectal exam revealed no abnormalities. The Olympus video pediatric colonoscope was entered into the rectum and advanced to the cecum with the assistance of abdominal wall pressure. Once in the cecum, I did identify normal-appearing cecal pouch with appendiceal orifice and a normal-appearing ileocecal valve. The entire cecum appeared normal. The scope was then slowly withdrawn assessing all mucosal surfaces carefully. Preparation was excellent after his 2-day prep. There was transillumination of light deep in the right lower quadrant. At 60 cm, there was an approximately 5 mm polyp, which was removed by cold snare polypectomy and recovered by suction. At 20 cm, there was an approximately 8 mm polyp, which was removed by cold snare polypectomy and recovered by suction. Both polypectomy sites appeared clean, without any sign of residual polyp nor significant bleeding. I did not visualize any other polyps, colitis, nor angiodysplasia. There was a mild amount of sigmoid diverticulosis. In the rectum, scope was retroflexed visualizing internal hemorrhoids, but no other pathology. The rectal mucosa appeared normal. Scope was straightened and withdrawn from the patient. He tolerated the procedure well and was returned to recovery area in stable condition. IMPRESSION: 1. Colon polyps. 2. Diverticulosis. 3. Internal hemorrhoids. PLAN: The results of the pathology will be checked. I would recommend a repeat colonoscopy in 5 years. He was advised to resume his aspirin in 24 hours. He will otherwise see me as needed. Lalit Hand MD RMAmber/ANDRES / [phone]
== END 2025-08-09 13:15 | disposition home or self-care (01) ==
PROVIDERS: PCP Internal Medicine; Visit Provider Internal Medicine
PROC: 0DJD8ZZ Inspection of Lower Intestinal Tract, Via Natural or Artificial Opening Endoscopic (ICD-10-PCS; CPT 45378; principal; 2025-08-09 10:30)
DX: Z12.11 Encounter for screening for malignant neoplasm of colon (principal); Z86.0101 Personal history of adenomatous and serrated colon polyps; K64.8 Other hemorrhoids; K57.30 Diverticulosis of large intestine without perforation or abscess without bleeding; D12.3 Benign neoplasm of transverse colon; D12.5 Benign neoplasm of sigmoid colon
CPT/HCPCS: 45385; 88305; J2003; J2371; J2704; J3010

== ENCOUNTER 2025-09-07 13:18 | Outpatient (AMB) | payer MEDICARE, SELFPAY ==
--- NOTE | 2025-09-07 13:26 | A.OFFPC_ITS ---
Vital Signs 09/07/25 13:30 Height 5 ft 9.29 in Weight 209 lb BMI 30.6 BP 106/52 L Blood Pressure Location Lt brachial Position Sitting Respiration 18 Pulse 60 Pulse Source Pulse Oximeter Temp 97.6 F Temp Source Temporal Artery Scan Pulse Oximetry (%) 98 Oxygen Delivery Method Room Air Intake Visit Reasons: DM, cardiomyopathy County Bailiff Required: No Accompanied by: Self / Same As Patient Allergies No Known Allergies Allergy (Verified 09/07/25 13:26) Medication List - Last Reconciled 09/07/25 by Nyla Alford MD amoxicillin 2,000 mg orally 1 hour before the procedure; aspirin 81 mg PO DAILY 90 days atorvastatin 80 mg PO BEDTIME blood sugar diagnostic ([employer] Verio test strips) 4 times a day blood-glucose sensor (Reverbeo Niranjan 3 Plus Sensor device) Use daily As directed to monitor glucose carvedilol 6.25 mg PO BID cholecalciferol (vitamin D3) 50 mcg PO DAILY dapagliflozin propanediol (Farxiga) 10 mg PO DAILY docusate sodium (Colace) 100 mg PO DAILY PRN insulin glargine U-300 conc (Toujeo Max U-300 SoloStar) 32 units (0.1067 mL) subcut DAILY insulin lispro (Humalog KwikPen (U-100) Insulin) 8 - 12 units (0.08 - 0.12 mL) subcut TID lancets As directed levothyroxine 125 mcg PO DAILY metformin 1,000 mg PO BID patiromer calcium sorbitex (Veltassa) 16.8 grams PO DAILY pen needle, diabetic (BD Ultra-Fine Manasa Pen Needle) 1 ea subcut QID sacubitril-valsartan 49-51 mg (Entresto) 1 tab PO BID Tobacco use date assessed: 05/20/25 Fall risk assessment: 1 Fall in past year Last assessed Fall Risk: 09/07/25 Dental Screening Dental Screen Date: 05/20/25 HPI HPI Comments History of Present Illness Details Patient is a 62-year-old male with medical history remarkable for type 2 diabetes mellitus, coronary artery disease s/p CABG, hypothyroidism, hyperlipidemia, hypertension, CKD, atrial fibrillation and CHF who is presenting for follow up. Today, patient reports right hand index finger pain for the past year, triggered with activity, 8-9/10 in intensity when painful. Does not use anything in particular for pain. Still able to function. Interested to try injections. Follows with Dr Acosta at [facility] for CHF. Echocardiogram from May 2025 shows severely decreased left ventricular systolic function with EF between 25- 30%, with grade 2 moderate diastolic dysfunction and wall motion abnormalities related to underlying coronary disease, no valvular pathology seen. [facility] Medical History Chronic renal insufficiency Arthritis Obesity due to excess calories Pancreatitis Vitamin D deficiency Type 2 diabetes mellitus with diabetic polyneuropathy Essential hypertension Hyperlipidemia LDL goal <100 Surgical History Hx of CABG History of implantable cardioverter-defibrillator (ICD) insertion Hx of total knee replacement H/O colonoscopy History of permanent cardiac pacemaker placement Hx of bilateral cataract extraction Hx of eye surgery History of neck surgery Family History Father Diabetes Mother No problems noted. 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 [employer] Cognitive needs: No Hearing needs: No Vision needs: No Questionnaire Thrive Questionnaire Date Thrive assessed: 10/12/24 I am a: Patient What is your living situation today?: I have a steady place to live Within the past 12 months, did the food you bought not last and you didn't have the money to get more?: Never true Within the past 12 months, did you worry whether your food would run out before you got money to buy more?: Never true Do you have trouble paying for medicines?: No Do you have trouble getting transportation to medical appointments?: No Do you have trouble paying your heating and electricity bill?: No Do you have trouble taking care of your child, family member or friend?: No Do you have trouble with day-to-day activities such as bathing, preparing meals, shopping, managing finances, etc.?: No Are you currently unemployed and looking for a job?: No Are you interested in more education?: No Please select the resources that you would like help with: None Currently or been in a relationship where the following occur: No concerns rep orted THRIVE Score: 0 JAMI-7 AMB Questionnaire JAMI-7 Date JAMI - 7 assessed: 05/20/25 Source: Developed by Drs. Lalit Marin, Danna Wang, Vasiliy Helms and colleagues, with an educational jules from [employer]. Physical exam (Primary Care) Vital Signs: Last Vital Signs Temp 97.6 F 09/07/25 13:30 Pulse 60 09/07/25 13:30 Resp 18 09/07/25 13:30 BP 106/52 L 09/07/25 13:30 Pulse Ox 98 09/07/25 13:30 Oxygen Delivery Method Room Air 09/07/25 13:30 General: Well-appearing, alert, oriented ?3, in no acute distress. Cardiovascular: RRR, S1-S2 appreciated, no murmurs, rubs or gallops. Respiratory: Lungs clear to auscultation bilaterally, no wheezes, rales or rhonchi. Abdomen: Soft, nontender, nondistended. Normoactive bowel sounds. BMI result Body Mass Index 30.6 Tobacco/Smoking Status: Tobacco use Status Tobacco use date assessed 05/20/25 09/07/25 13:27 Patient Tobacco Use Status Never used Tobacco 09/07/25 13:27 e-Cigarette/Vaping Use Never Used 09/07/25 13:27 Thrive Assessment: Date of Thrive Assessment Date Thrive assessed 10/12/24 09/07/25 13:27 Currently or been in a relationship where the following occur: No concerns reported Results AMB Hemoglobin A1c AMB Hemoglobin A1c 7.5 % Last Edit by VLADIMIR Metcalf on 09/07/25 14:14 Coding Level of Care Code Est Pt Level 4 (91191) Diagnoses Coronary artery disease involving assinibo[place] and sioux heart without angina pectoris, unspecified vessel or lesion type I25.10 Coronary Disease-Associated Artery/Lesion type: unspecified vessel or lesion type [place]ampart vs. transplanted heart: assinibo[place] and sioux heart Associated angina: without angina Type 2 diabetes mellitus with hyperglycemia, with long-term current use of insulin E11.65; Z79.4 Diabetes mellitus mcfp insulin use: with mcfp use Hypothyroidism, unspecified type E03.9 Hypothyroidism type: unspecified Class 1 obesity due to excess calories with serious comorbidity and body mass index (BMI) of 31.0 to 31.9 in adult E66.09; Z68.31 Obesity classification: adult class 1 (BMI 30 - 34.9) Serious obesity comorbidity presence: with serious comorbidity Body mass index: BMI 31.0-31.9 Hyperlipidemia LDL goal <100 E78.5 Atrial fibrillation, unspecified type I48.91 Atrial fibrillation type: unspecified Essential hypertension I10 Combined systolic and diastolic congestive heart failure, unspecified HF chronicity I50.40 Heart failure type: combined systolic and diastolic Heart failure chronicity: unspecified Finger pain, right M79.644 Assessment & Plan Assessment & Plan (1) Coronary artery disease: Comment: CT 12/2024 CABG 12/2024 Dr. Villafana [facility] Code(s): I25.10 - Atherosclerotic heart disease of assinibo[place] and sioux coronary artery without angina pectoris Category: Medical Qualifiers: Coronary Disease-Associated Artery/Lesion type: unspecified vessel or lesion type [place]ampart vs. transplanted heart: assiniboine and sioux heart Associated angina: without angina Qualified Code(s): I25.10 - Atherosclerotic heart disease of ass[place] and si[place] coronary artery without angina pectoris Plan: Lipid panel from December 2024 within normal limits with LDL 55 at goal <60, blood pressure controlled. Continue on aspirin 81 mg daily and atorvastatin 80 mg (2) Type 2 diabetes mellitus with hyperglycemia: Comment: Dr. Dennis Code(s): E11.65 - Type 2 diabetes mellitus with hyperglycemia Category: Medical Qualifiers: Diabetes mellitus emt/paramedic insulin use: with mcfp use Qualified Code(s): E11.65 - Type 2 diabetes mellitus with hyperglycemia; Z79.4 - intermediate (current) use of insulin Plan: Hemoglobin A1c today 7.5 which is stable from April 2025, goal is less than 7.0. Follow up with Endocrinology Continue on Farxiga 10 mg, Toujeo insulin 32 units daily, Humalog at dinner, metformin 1000 mg twice a day Decrease carbohydrate intake, sweetened beverages and refined sugar (3) Hypothyroid: Comment: 12/2023 Code(s): E03.9 - Hypothyroidism, unspecified Category: Medical Qualifiers: Hypothyroidism type: unspecified Qualified Code(s): E03.9 - Hypothyroidism, unspecified Plan: Continue with thyroid medication TSH from December 2024 was normal. Repeat thyroid test prior to next visit (4) Obesity due to excess calories: Code(s): E66.09 - Other obesity due to excess calories Category: Medical Qualifiers: Obesity classification: adult class 1 (BMI 30 - 34.9) Serious obesity comorbidity presence: with serious comorbidity Body mass index: BMI 31.0-31.9 Qualified Code(s): E66.09 - Other obesity due to excess calories; Z68.31 - Body mass index [BMI] 31.0-31.9, adult Plan: Diet and exercise (5) Hyperlipidemia LDL goal <100: Code(s): E78.5 - Hyperlipidemia, unspecified Category: Medical Plan: Continue on atorvastatin 80 mg at bedtime, repeat lipid panel prior to next visit. Lipid panel from December 2024 within normal limits (6) Atrial fibrillation: Comment: limited 12/2023 in hospital, no anticoagulation Code(s): I48.91 - Unspecified atrial fibrillation Category: Medical Qualifiers: Atrial fibrillation type: unspecified Qualified Code(s): I48.91 - Unspecified atrial fibrillation Plan: Continue to monitor (7) Essential hypertension: Code(s): I10 - Essential (primary) hypertension Category: Medical Plan: Continue with blood pressure medication. Decrease salt intake and exercise continuing with Entresto (8) Congestive heart failure: Comment: reduced EF Code(s): I50.9 - Heart failure, unspecified Category: Medical Qualifiers: Heart failure type: combined systolic and diastolic Heart failure chronicity: unspecified Qualified Code(s): I50.40 - Unspecified combined systolic (congestive) and diastolic (congestive) heart failure Plan: Follows with Dr Acosta at [facility] for CHF. Echocardiogram from May 2025 shows severely decreased left ventricular systolic function with EF between 25- 30%, with grade 2 moderate diastolic dysfunction and wall motion abnormalities related to underlying coronary disease, no valvular pathology seen. Continue on Farxiga, Entresto, and carvedilol (9) Finger pain, right: Comment: pointer finger Code(s): M79.644 - Pain in right finger(s) Category: Medical Plan: Patient reports interest in trial of injections for pain control in his right index finger, referral to hand surgery provided Orders: Orders Lipid Panel with Reflex 3 Months Z13.220 - Encounter for screening for lipoid disorders Comprehensive Met. Panel 3 Months Z00.00 - Encounter for general adult medical examination without abnormal findings TSH reflex Free T4 3 Months E03.9 - Hypothyroidism, unspecified AMB Hemoglobin A1c Today E11.42 - Type 2 diabetes mellitus with diabetic polyneuropathy Referrals Hand Surgery Referral M79.641 - Pain in right hand
[2025-09-07 13:30] VITALS: BP 106/52; PULSE 60; RESP 18; TEMP 36.4; O2SAT 98; BMI 30.6
== END 2025-09-07 14:03 | disposition home or self-care (01) ==
LOC: HO.HMCH 13:19
PROVIDERS: PCP Internal Medicine; Visit Provider Student in an Organized Health Care Education/Training Program
DX: E11.65 Type 2 diabetes mellitus with hyperglycemia (principal); Z79.4 Long term (current) use of insulin; I48.91 Unspecified atrial fibrillation; I50.40 Unspecified combined systolic (congestive) and diastolic (congestive) heart failure; E11.42 Type 2 diabetes mellitus with diabetic polyneuropathy; I25.10 Atherosclerotic heart disease of native coronary artery without angina pectoris; E66.09 Other obesity due to excess calories; Z68.31 Body mass index [BMI] 31.0-31.9, adult; E03.9 Hypothyroidism, unspecified; E78.5 Hyperlipidemia, unspecified; I10 Essential (primary) hypertension; M79.644 Pain in right finger(s)

== ENCOUNTER → 2025-09-07 13:18 | Outpatient (BNVA) | payer MEDICARE, SELFPAY | PROVIDERS: PCP Internal Medicine; Visit Provider Student in an Organized Health Care Education/Training Program | DX: E11.65 Type 2 diabetes mellitus with hyperglycemia (principal); E03.9 Hypothyroidism, unspecified; E66.09 Other obesity due to excess calories; E78.5 Hyperlipidemia, unspecified; I48.91 Unspecified atrial fibrillation; M79.644 Pain in right finger(s); I50.40 Unspecified combined systolic (congestive) and diastolic (congestive) heart failure; I10 Essential (primary) hypertension; Z79.4 Long term (current) use of insulin; Z68.31 Body mass index [BMI] 31.0-31.9, adult; Z79.899 Other long term (current) drug therapy | CPT/HCPCS: 83036; 99212 ==

== ENCOUNTER 2025-09-17 10:17 | Outpatient (AMB) | payer MEDICARE, SELFPAY ==
--- OUTSIDE RECORDS SUMMARY | 2025-08-09 05:30 | XMS_ITS ---
Author Organization [facility] Address [address] [place] [id number] Care Team Providers Care Network Coordinator Name Role Phone Lane Red MD Primary Care Provider Lalit Foreman [phone] REASON FOR VISIT screening,hx polyps Encounters Encounter Location Date Provider Diagnosis [facility] Outpatient [address] [place] [id number] 08/09/2025 Lalit Hand Colon cancer scree edgardo Z12.11 and Colon polyp K63.5 Assessments Encounter Date Diagnosis (ICD Code) Assessment Notes Treatment Notes Treatment Clinical Notes Section Notes 08/09/2025 Colon cancer screening (ICD-10 - Z12.11) 08/09/2025 Colon polyp (ICD-10 - K63.5) Plan Of Treatment Next Appt Details Follow Up: JUL 2030, Reason: Progress Notes * GILDAHENNY RIVERADOB:1955 (70 yo M)Acc No.[id number]:08/09/2025 COLON WITH MAC Patient: HENNY RAINES Provider: Juan R Hand MD :1955 A ge:70 Y S ex:Male Date:08/09/2025 Address:[address] [place], [place] [id number] Pcp:Lane Red MD Subjective: * Chief Complaints: * S creening,hx polyps Assessment: * Assessment: 1. C olon cancer screening - Z12.11 (Primary) 2 . C olon polyp - K63.5 Plan: * Procedure Codes: 4 5385 LESION REMOVAL [id number] INTRVL 3+YRS PTS CLNSCP [id number] RCMND FLW-UP 10 YRS DOCD * Follow Up: N OV 2029 Billing Information: * Procedure Codes: 63571 LESION REMOVAL COLONOSCOPY. 0529F INTRVL 3+YRS PTS CLNSCP DOCD. 0528F RCMND FLW-UP 10 YRS DOCD. * The named appointment provid er may or may not be the originator of this progress note, and it is not deemed complete until electronically signed by the appointment provider. Sign off status: Pending * Provider: Juan R Hand MD Date: 10/09/2024 Generated for Tammie rubio/Miryam/Margoitting on: 11/18/2024 11:41 AM EST
[2025-09-17 10:21] VITALS: BP 110/52; PULSE 59; O2SAT 98; BMI 31.0
--- NOTE | 2025-09-17 10:21 | A.OFFVIS_ITS ---
Vital Signs 09/17/25 10:21 Height 5 ft 9.29 in Weight 211 lb 13.828 oz BMI 31.0 BP 110/52 L Blood Pressure Location Rt brachial Position Sitting Pulse 59 Pulse Source Pulse Oximeter Pulse Oximetry (%) 98 Oxygen Delivery Method Room Air Intake Visit Reasons: DMT2 Follow-UP Intake Note: Patient present today for Type 2 Diabetes Mellitus Last Diabetic eye exam: Last exam was in 2023 Last Podiatry Visit: Doesn't have one and would like a referral. Random Glucose: 186 mg/dl HgA1C: 7.5% 09/07/25 Silver [employer] Assembler Required: No Accompanied by: Self / Same As Patient Allergies No Known Allergies Allergy (Verified 09/17/25 10:26) Medication List - Last Reconciled 09/17/25 by Tjeal Real PA-C amoxicillin 2,000 mg orally 1 hour before the procedure; aspirin 81 mg PO DAILY 90 days atorvastatin 80 mg PO BEDTIME blood sugar diagnostic (G[employer]uch Verio test strips) 4 times a day blood-glucose sensor ([employer] Niranjan 3 Plus Sensor device) Use daily As directed to monitor glucose carvedilol 6.25 mg PO BID cholecalciferol (vitamin D3) 50 mcg PO DAILY dapagliflozin propanediol (Farxiga) 10 mg PO DAILY docusate sodium (Colace) 100 mg PO DAILY PRN insulin glargine U-300 conc (Toujeo Max U-300 SoloStar) 32 units (0.1067 mL) subcut DAILY insulin lispro (Humalog KwikPen (U-100) Insulin) subcutaneously 2 times a day; inject 5 units prior to lunch and inject 10 units prior to dinner lancets As directed levothyroxine 125 mcg PO DAILY metformin 1,000 mg PO BID patiromer calcium sorbitex (Veltassa) 16.8 grams PO DAILY pen needle, diabetic (BD Ultra-Fine Manasa Pen Needle) 1 ea subcut QID sacubitril-valsartan 49-51 mg (Entresto) 1 tab PO BID HPI HPI DMT2 Follow-UP: Details: Patient is a 70-year-old male with a significant past medical history of chronic kidney disease, hx of pancreatitis. AFib, ICD in place, CAD, CHF, hypothyroidism, hypertension, hyperlipidemia, type 2 diabetes insulin dependent presenting today to establish care for his diabetes. Endo: Dm-he was diagnosed with diabetes. last A1c was 7.5. He is currently managed with Farxiga 10 mg daily, Toujeo 32 units daily, Humalog 5 units with dinner, metformin 1000 mg twice a day. He states that he pancreatitis in 2001 and they do not know exactly why he had pancreatitis. CGM- average glucose 144, very hyperglycemic 1%, hyperglycemic 19%, in range 80%, hypoglycemic 0%. Most of the blood sugars are postprandial. He tries to exercise regularly. He just joined the [employer]. Hypoglycemia-states that he has candy at home to treat if needed but has not had low blood sugars. Hyperglycemia-polyuria or polydipsia. CV: Blood pressure today in the office is 102/52. He is on Entresto. Cholesterol is managed with atorvastatin 80 mg. [facility] Medical History Chronic renal insufficiency Arthritis Obesity due to excess calories Pancreatitis Vitamin D deficiency Type 2 diabetes mellitus with diabetic polyneuropathy Essential hypertension Hyperlipidemia LDL goal <100 Surgical History Hx of CABG History of implantable cardioverter-defibrillator (ICD) insertion Hx of total knee replacement H/O colonoscopy History of permanent cardiac pacemaker placement Hx of bilateral cataract extraction Hx of eye surgery History of neck surgery Family History Father Diabetes Mother No problems noted. 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 [employer] Cognitive needs: No Hearing needs: No Vision needs: No Physical Exam Vital Signs: Last Vital Signs Pulse 59 09/17/25 10:21 BP 110/52 L 09/17/25 10:21 Pulse Ox 98 09/17/25 10:21 Oxygen Delivery Method Room Air 09/17/25 10:21 BMI result Body Mass Index 31.0 Const Orientation/consciousness: patient oriented x3 Neck Neck: Yes no lymphadenopathy Thyroid: Thyroid normal Carotids: no bruits Resp Auscultation: clear to auscultation bilaterally Cardio Rate: regular rate Rhythm: regular rhythm Heart sounds: S1 normal heart sound present and S2 normal heart sound present Peripheral pulses: dorsalis pedis present Neuro General: patient oriented x3, gait normal and no focal motor deficits Extrem Other: Monofilament sensation intact bilaterally. diminished Vibratory sensation on right and intact on left. Skin intact. General: Yes normal to inspection Results Reviewed Results Reviewed: Laboratory Last Values Glucose (Clinic) 186 mg/dL (60-115) H 09/17/25 10:28 Assessment & Plan Assessment & Plan (1) Type 2 diabetes mellitus with diabetic polyneuropathy: Code(s): E11.42 - Type 2 diabetes mellitus with diabetic polyneuropathy Category: Medical Qualifiers: Diabetes mellitus senior care insulin use: without senior care use Qualified Code(s): E11.42 - Type 2 diabetes mellitus with diabetic polyneuropathy Plan: Reviewed how to treat low blood sugars Continue Toujeo 32 units Continue the metformin and Farxiga start humalog 5 units prior to lunch and 10 units prior to dinner Follow up in 3 months. Sooner if needed. (2) Essential hypertension: Code(s): I10 - Essential (primary) hypertension Category: Medical Plan: WNL. Continue current regimen Medications: Changed From insulin lispro (Humalog KwikPen (U-100) Insulin) 8 - 12 units (0.08 - 0.12 mL) subcut TID 15 mL 5RF To insulin lispro (Humalog KwikPen (U-100) Insulin) subcutaneously 2 times a day; inject 5 units prior to lunch and inject 10 units prior to dinner 15 mL 5RF Coding Level of Care Code Est Pt Level 4 (38258) Add On Problem Visit Only Diagnoses Type 2 diabetes mellitus with diabetic polyneuropathy, without long-term current use of insulin E11.42 Diabetes mellitus senior care insulin use: without petroleum terminal plant operator use Essential hypertension I10
[2025-09-17 10:32] LABS: Glucose, Whole Blood 186 mg/dL (60-115)
--- OUTSIDE RECORDS SUMMARY | 2025-09-17 11:41 | XMS_ITS | Patient Health Record ---
Author Organization [facility] Address [address] [place] [address] Care Team Providers Care Computer Systems Analyst Name Role Phone Lane Red MD Primary Care Provider Lalit Foreman [phone] Allergies No Known Allergies Results Component Value Reference Range Notes Pathology (Not yet reviewed by provider) Interpretation: Performing Lab:[facility], [address] [place] [id number] Notes/Report: Reason For Referral No Information Medications Medication SIG (Take, Route, Frequency, Duration) Notes Start Date End Date Status Farxiga 10 MG Tablet Oral; Duration: 30 Days Active Levothyroxine Sodium 125 MCG Tablet Oral; Duration: 90 Days Acti ve Carvedilol 6.25 MG Tablet TAKE 1 TABLET BY MOUTH TWICE A DAY Oral; Duration: 90 Days Active Entresto 49-51 MG Tablet Oral; Duration: 30 Days Active Toujeo Max SoloStar 300 UNITS DIRECTED ORALLY AT HS Act jennifer Vitamin D3 Active HumaLOG 100 UNITS DIRECTED DIREC MARK DIRECTED Active Atorvastatin Calcium 80 MG Tablet Oral; Duration: 90 Days Acti ve Aspirin 81 Active Immunizations Vaccine Route Administration Date Status Comme nts Influenza Unknown 05/31/2018 Administered Social History Tobacco Use: Social History Observation Description Date Details (start date - stop date) Never Smoker NA - NA Social History Drugs/Alcohol: Social Info Question Answer Notes Alcohol Screen Did you have a drink containing alcohol in the past year? Yes How often did you have a drink containing alcohol in the past year? Never (0 point) How many drinks did you have on a typical day when you were drinking in the past year? 1 or 2 drinks (0 point) How often did you have 6 or more drinks on one occasion in the past year? 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 Section Notes: Nonsmoker; no sig alcohol Nonsmoker; no sig alcohol Problems Problem Type SNOMED Code ICD Code Onset Dates Problem Status W/U Status Risk Notes Problem Screening for malignant neoplasm of colon (301616902) Encounter for screening for malignant neoplasm of colon (Z12.11) Active confirmed Problem Preprocedural examination (286789829781576) Preprocedural examination (Z01.818) Active confirmed Problem History of adenomatous polyp of colon (846508002) Hx of adenomatous colonic polyps (Z86.010) Active confirmed Problem History of pancreatitis (63462640656704) History of pancreatitis (Z87.19) Active confirmed Vital Signs Blood pressure diastolic 77 mm Hg 05/13/2025 Height 70 in 05/13/2025 Blood pressure systolic 111 mm Hg 05/13/2025 Weight 209 lbs 05/13/2025 BMI 29.99 kg/m2 05/13/2025 Procedures Procedure Date Ordered Date Performed Result Body Sit e COLONOSCOPY 05/13/2025 N/A Encounters Encounter Location Date Provider Diagnosis [facility] Outpatient [address] [place] [phone] 08/09/2025 Lalit Hand Colon cancer screeni ng Z12.11 and Colon polyp K63.5 [facility] [address] [place] [phone] 05/13/2025 Lalit Hand Encounter for screening for malignant neoplasm of colon Z12.11 ; Preprocedural examination Z01.818 and Hx of adenomatous colonic polyps Z86.010 [facility] [address] [place] [phone] 05/13/2025 Lalit Hand Assessments Encounter Date Diagnosis (ICD Code) Assessment Notes Treatment Notes Treatment Clinical Notes Section Notes 08/09/2025 Colon cancer screening (ICD-10 - Z12.11) 08/09/2025 Colon polyp (ICD-10 - K63.5) 05/13/2025 Encounter for screening for malignant neoplasm [...] cardiology clearance note from Dr. Acosta at [facility]. Javi was comfortable with this plan. [...] cardiology clearance note from Dr. Acosta at [facility]. Javi was comfortable with this plan. [...] cardiology clearance note from Dr. Acosta at [facility]. Javi was comfortable with this plan. Thank you again for allowing me to participate in Javi's care. I shall continue to keep you advised of his progress. Plan Of Treatment Pending Test Test Name Order Date COLONOSCOPY 05/13/2025 Pathology 08/09/2025 Future Test Test Name Order Date COLONOSCOPY 11/18/2018 Insurance Providers Payer Name Payer Address Payer Phone Subscriber Number Group Number Insured Name Patient Relationship to Insured Coverage Start Date Coverage End Date [facility] [address] [place] [address] [id number] JAVI HAWTHORNE Self - patient is the insured 4 Medical (General) History Medical History History ICD Code Hx of pancreatitis--2001--? etiology---may have been from elevated TG's of > 800 at that time--no alcohol nor associated gallbladder disease--no problems since--- he was treated with Lopid at that time. IDDM HTN Denies CVA,Lung disease,renal disease Colonoscopy in 2007--small tubular adeno ma removed Hypertriglyceridemia LA in 2023 with CHF with sub sequent 3 V CABG, Reports a cardiac EF of 22%. Transient Afib. Sees Dr. Acosta from [facility] Pacemaker 2024 Screening colonoscopy in 2018 with remov al of small tubular adenomas Surgical History Surgery Date(Month/Year) Neck Eye at age 7 triple bypass 2023 pacemaker 2024 back surgery pinched nerve left knee replacement
== END 2025-09-17 10:48 | disposition home or self-care (01) ==
LOC: HO.ENCR 10:18
PROVIDERS: PCP Internal Medicine; Visit Provider Physician Assistant
DX: E11.42 Type 2 diabetes mellitus with diabetic polyneuropathy (principal); I10 Essential (primary) hypertension

== ENCOUNTER → 2025-09-17 10:17 | Outpatient (BNVA) | payer MEDICARE, SELFPAY | PROVIDERS: PCP Internal Medicine; Visit Provider Physician Assistant | DX: E11.42 Type 2 diabetes mellitus with diabetic polyneuropathy (principal); I10 Essential (primary) hypertension | CPT/HCPCS: 82947; 99212 ==